=== PATIENT | male | born 1950 | race Caucasian/White ===

== ENCOUNTER → 2016-08-12 | Outpatient (CLI) | payer MEDICARE, BC ==
[~2016-08-12] MED LIST: ASPIR 8181 MG PO; DEMEROL HYDROCH50 MG PO; FISH OIL PO; FLEXERIL10 MG PO; FLOMAX0.4 MG PO; HYDROCODONE BIT1 T11 PO; METOPROLOL PO; MOTRIN800 MG PO; PREDNICOT20 MG PO; ROBAXIN-750750 MG PO; SPIRIVA -- 3018 MCG INH; TOPROL XL25 MG PO; VOLTAREN GEL1% TP; ZOCOR PO; [UNRECOGNIZED DRUG - REMARK] PO
== END | disposition home or self-care (01) ==
LOC: RAD 15:36
DX: J43.9 Emphysema, unspecified (principal); I25.10 Atherosclerotic heart disease of native coronary artery without angina pectoris; F17.200 Nicotine dependence, unspecified, uncomplicated

== ENCOUNTER 2016-11-30 16:56 | Emergency (ER) | payer MEDICARE, BC ==
[~2016-11-30] VITALS: Wt 106.6 kg
[2016-11-30] MEDS ORDERED: JANUMET 50-1,01 EACH PO (17:29)
[2016-11-30] MEDS ORDERED: ZOCOR20 MG PO (17:30)
[2016-11-30] MEDS ORDERED: AUGMENTIN 875875 MG PO (17:31)
[2016-11-30] MEDS ORDERED: METHYLPRED-DP4 MG PO (17:31)
[2016-11-30] MEDS ORDERED: IBU800 M1 PO (17:31)
[2016-11-30 17:51] VITALS: BP 156/92
[2016-11-30 18:01] LABS: BASO % 0.3 % (0.0-1.0); EOS % 0.1 % (1.0-4.0); HEMATOCRIT 40.1 % (42.0-52.0); LYMPH # 2.4 10*3/uL (1.3-4.4); LYMPH % 20.7 % (27.0-41.0); MEAN CELL VOLUME 91.1 fl (80.0-94.0); MEAN CORPUSCULAR HGB 31.8 pg (27.0-31.0); MEAN CORPUSCULAR HGB CONC 34.9 g/dl (33.0-37.0); MEAN PLATELET VOLUME 10.3 fl (9.6-12.3); MONO # 0.7 10*3/uL (0.1-1.0); MONO % 6.4 % (3.0-9.0); NEUT # 8.3 10*3/uL (2.3-7.9); NEUT % 72.2 % (47.0-73.0); PLATELET COUNT AUTOMATED 190 10*3/uL (130-400); RED CELL DISTRI WIDTH 12.7 % (0-14.5); WHITE BLOOD COUNT 11.5 10*3/uL (4.8-10.8)
[2016-11-30 18:18] LABS: ALBUMIN 3.8 gm/dl (3.1-4.5); ALKALINE PHOSPHATASE 46 U/L (45-117); BUN 12 mg/dl (7-24); CHLORIDE 108 mmol/L (98-107); CREATININE 0.81 mg/dL (0.70-1.30); POTASSIUM 4.1 mmol/L (3.5-5.1); SGOT/AST 26 IU/L (3-35); SGPT/ALT 48 U/L (12-78); SODIUM 140 mmol/L (136-145); TOTAL PROTEIN 8.1 gm/dL (6.4-8.2)
== END 2016-11-30 19:48 | disposition home or self-care (01) ==
LOC: ED 16:56
PROVIDERS: Nurse Practitioner Family
DX: M71.21 Synovial cyst of popliteal space [Baker], right knee (principal); Z79.82 Long term (current) use of aspirin; Z88.6 Allergy status to analgesic agent; Z79.899 Other long term (current) drug therapy; F17.200 Nicotine dependence, unspecified, uncomplicated

== ENCOUNTER → 2017-01-06 | Outpatient (CLI) | payer MEDICARE, BC ==
[~2017-01-06] MED LIST changes: +AUGMENTIN 875875 MG PO; +IBU800 M1 PO; +JANUMET 50-1,01 EACH PO; +METHYLPRED-DP4 MG PO; +ZOCOR20 MG PO
== END | disposition home or self-care (01) ==
LOC: CARD 12-28 15:00
DX: I34.0 Nonrheumatic mitral (valve) insufficiency (principal); I20.9 Angina pectoris, unspecified; Z79.899 Other long term (current) drug therapy

== ENCOUNTER → 2017-01-10 | Outpatient (CLI) | payer MEDICARE, BC ==
--- NOTE | ~2017-01-10 | ST ---
[place], [place] EXERCISE STRESS TEST REPORT NAME: IRISH RUDOLPH UNIT #: [id number] ROOM: DOCTOR: IRISH AGUILAR MD BIRTHDATE: [birth year] DOS: 01/10/2017 PHARMACOLOGIC STRESS TEST REASON FOR STRESS TEST: Precordial chest pain, history of coronary artery disease with previous stent. PROCEDURE: The patient received a rapid infusion of regadenoson 0.4 mg intravenously followed by a saline flush. The resting electrocardiogram showed sinus bradycardia. His resting heart rate of 55 increased to 69 after the infusion. He had no diagnostic ST or T-wave changes. He did experience chest tightness and dyspnea with the infusion that resolved spontaneously. Forty seconds after the infusion of regadenoson, he was given radionuclide intravenously. IMPRESSION: 1. Well tolerated infusion of regadenoson. 2. Radionuclide injected. Please see the separately dictated imaging report for further details of the patient's stress test results. IRISH AGUILAR MD CM:STRESS:EXERCISE STRESS TEST REPORT [id number] IRISH AGUILAR MD
--- NOTE | 2017-01-10 10:17 | NUR ---
INFORMED SIGNED CONSENT OBTAINED FOR LEXISCAN STRESS TEST WITH DR AGUILAR. EKG SINUS BRADYCARDIA HR 55 BP 122/55. PULSE OX 96% LUNGS CLEAR. PT COMPLETED ONE MINUTE OF A LEXISCAN PROTOCOL WITH PT RECEIVING LEXISCAN 0.4MG IV OVER 10 SECONDS. PT REACHED A PEAK HR OF 69 BP 140/50. NO ARRHYTHMIAS OR ST CHANGES. LAST RECOVERY HR OF 69 BP 120/68. PT IN STABLE CONDITION, AWAITING NUCLEAR IMAGES.
== END | disposition home or self-care (01) ==
LOC: CARD 01:24
DX: I20.9 Angina pectoris, unspecified (principal); R53.81 Other malaise; Z79.899 Other long term (current) drug therapy

== ENCOUNTER → 2017-04-12 | Outpatient (CLI) | payer OTHER, MEDICARE | END | disposition home or self-care (01) | LOC: US 13:30 | DX: R10.11 Right upper quadrant pain (principal) ==

== ENCOUNTER → 2017-06-01 | Outpatient (CLI) | payer MEDICARE | END | disposition home or self-care (01) | LOC: MRI 02:27 | DX: M54.2 Cervicalgia (principal); Z98.890 Other specified postprocedural states ==

== ENCOUNTER → 2017-08-05 | Outpatient (CLI) | payer OTHER, MEDICARE | END | disposition home or self-care (01) | LOC: MRI 13:00 | DX: I67.82 Cerebral ischemia (principal) ==

== ENCOUNTER → 2017-09-09 | Outpatient (CLI) | payer MEDICARE | END | disposition home or self-care (01) | LOC: CT 13:00 | DX: I25.10 Atherosclerotic heart disease of native coronary artery without angina pectoris (principal); I10 Essential (primary) hypertension; E11.9 Type 2 diabetes mellitus without complications; R91.1 Solitary pulmonary nodule; R06.02 Shortness of breath ==

== ENCOUNTER 2018-02-16 15:36 | Emergency (ER) | payer MEDICARE ==
[~2018-02-16] VITALS: Ht 177.8 cm; Wt 108.9 kg
--- NOTE | ~2018-02-16 | EKG ---
[place], [place] ELECTROCARDIOGRAM REPORT NAME: JOZEF RUDOLPH UNIT #: [id number] ROOM: DOCTOR: EPIPHANY DRAFT REPORT BIRTHDATE: [birth year] [facility] Test Date: 2018-02-16 Test Time: 16:06:58 Pat Name: JOZEF RUDOLPH Department: ER Room: Gender: Help Desk Assistant: So Malloy : 1950 Requested By: KRISTOPHER SORIA DNP Order Number: [id number] Reading MD: Jozef Tim MD Measurements Intervals [place] Rate: 62 P: 42 MT: 186 QRS: 8 QRSD: 93 T: 55 QT: 423 QTc: 430 Interpretive Statements Sinus rhythm Electronically Signed On 02-16-2018 16:39:21 PST by Jozef Tim MD CM:EKGRPT:ELECTROCARDIOGRAM REPORT [id number] KRISTOPHER SORIA DNP [facility] KRISTOPHER SORIA DNP
[2018-02-16] MEDS ORDERED: HALOPERIDOL1 MG PO ×2 (15:50→15:51)
[2018-02-16] MEDS ORDERED: THIAMINE HCL100 MG PO (15:52)
[2018-02-16] MEDS ORDERED: DONEPEZIL HCL10 MG PO (15:53)
[2018-02-16] MEDS ORDERED: NATURE'S BLEND F1 MG PO (15:54)
[2018-02-16] MEDS ORDERED: TRAZODONE100 MG PO (15:54)
[2018-02-16] MEDS ORDERED: ZOLOFT100 MG PO (15:54)
[2018-02-16] MEDS ORDERED: VITAMIN D32000 UNI1 PO (15:56)
[2018-02-16] MEDS ORDERED: MEN'S ONE DAIL1 EACH PO (15:56)
[2018-02-16 16:09] LABS: BASO % 0.3 % (0.0-1.0); EOS # 0.3 10*3/uL (0.0-0.4); EOS % 3.6 % (1.0-4.0); HEMATOCRIT 41.4 % (42.0-52.0); LYMPH # 3.7 10*3/uL (1.3-4.4); LYMPH % 41.6 % (27.0-41.0); MEAN CELL VOLUME 91.8 fl (80.0-94.0); MEAN CORPUSCULAR HGB CONC 33.8 g/dl (33.0-37.0); MONO # 0.8 10*3/uL (0.1-1.0); MONO % 9.4 % (3.0-9.0); NEUT # 3.9 10*3/uL (2.3-7.9); NEUT % 44.6 % (47.0-73.0); PLATELET COUNT AUTOMATED 188 10*3/uL (130-400); RED BLOOD COUNT 4.51 10*6/uL (4.50-5.90); RED CELL DISTRI WIDTH 12.6 % (0-14.5); WHITE BLOOD COUNT 8.8 10*3/uL (4.8-10.8)
[2018-02-16 16:18] LABS: INTERNATIONAL NORM RATIO 0.9 (2.0-3.5)
[2018-02-16 16:23] LABS: BILIRUBIN NEGATIVE (NEGATIVE); BLOOD NEGATIVE (NEGATIVE); CLARITY CLEAR (CLEAR); COLOR YELLOW (YELLOW); GLUCOSE NEGATIVE (NEGATIVE); KETONE NEGATIVE (NEGATIVE); LEUKO ESTERASE NEGATIVE (NEGATIVE); NITRITE NEGATIVE (NEGATIVE); UROBILINOGEN 0.2 E.U./dl (0.2-1.0)
[2018-02-16 16:24] LABS: ALBUMIN 3.9 gm/dl (3.1-4.5); ALKALINE PHOSPHATASE 55 U/L (45-117); BUN 11 mg/dl (7-24); CHLORIDE 105 mmol/L (98-107); CREATININE 0.77 mg/dL (0.70-1.30); LIPASE 290 U/L (73-393); POTASSIUM 3.7 mmol/L (3.5-5.1); SGOT/AST 20 IU/L (3-35); SGPT/ALT 46 U/L (12-78); SODIUM 140 mmol/L (136-145); TOTAL PROTEIN 7.6 gm/dL (6.4-8.2)
[2018-02-16 16:25] LABS: ETHYL ALCOHOL < 3.0 mg/dl (<3); TROPONIN I < 0.015 ng/ml (<0.045)
[2018-02-16 16:30] LABS: BACTERIA 2+
[2018-02-16 18:08] VITALS: BP 128/69
[2018-02-16] MEDS ORDERED: PRILOSEC20 M1 PO (18:54)
[2018-02-16] MEDS ORDERED: Zofran4 MG SL (18:54)
[2018-02-16] MEDS ORDERED: Carafate1 GM/10 ML PO (18:54)
== END 2018-02-16 19:25 | disposition home or self-care (01) ==
LOC: ED 15:36
PROVIDERS: Nurse Practitioner Family
DX: K29.70 Gastritis, unspecified, without bleeding (principal); I10 Essential (primary) hypertension; E78.5 Hyperlipidemia, unspecified; J44.9 Chronic obstructive pulmonary disease, unspecified; K21.9 Gastro-esophageal reflux disease without esophagitis; F17.200 Nicotine dependence, unspecified, uncomplicated; Z88.6 Allergy status to analgesic agent; Z79.899 Other long term (current) drug therapy

== ENCOUNTER → 2018-04-14 | Day surgery (SDC) | payer MEDICARE ==
[~2018-04-14] VITALS: Ht 177.8 cm; Wt 109.3 kg
[~2018-04-14] MED LIST changes: +AMARYL4 MG PO; +BAYER ASPIRIN C81 MG PO; +Carafate1 GM/10 ML PO; +DONEPEZIL HCL10 MG PO; +GLIPIZIDE5 MG PO; +HALOPERIDOL1 MG PO; +LIPITOR40 MG PO; +Lopressor25 MG PO; +MEN'S ONE DAIL1 EACH PO; +METOPROLOL SUCC25 M2 PO; +NATURE'S BLEND F1 MG PO; +PRILOSEC20 M1 PO; +THIAMINE HCL100 MG PO; +TRAZODONE100 MG PO; +VITAMIN D32000 UNI1 PO; +ZOLOFT100 MG PO; +Zofran4 MG SL
--- NOTE | ~2018-04-14 | O ---
[place], [place] OPERATIVE NOTE NAME: IRISH RUDOLPH UNIT #: [id number] ROOM: DOCTOR: EVERTON DIEGO MD BIRTHDATE: [birth year] DOS: 04/14/2018 GASTROENDOSCOPIC REPORT HISTORY OF PRESENT ILLNESS: The patient has presented with a chief complaint of dyspepsia and diarrhea, undergone evaluation. ALLERGIES: CODEINE. FAMILY HISTORY: Noncontributory. PAST SURGICAL HISTORY: Neck, thumbs, cardiac stent x 1, and dental. PAST MEDICAL HISTORY: Diabetes, hypertension, hyperlipidemia, coronary artery disease, and obesity. SOCIAL HISTORY: Smoker of three packs a day. Social alcohol consumer. PROCEDURE: Today's procedure part of investigation is panendoscopy and colonoscopy. PREMEDICATION: Propofol. SCOPE: Olympus forward-viewing gastroscope Q10 video. REPORT: After putting the patient in left lateral position and application of lubricant to the scope, the scope was introduced. Thereafter, under direct visualization, advanced through the length of esophagus without difficulty. Hiatal hernia was noticed about 3 cm. Gastric pouch was entered. Gastritis seen. Antral biopsy obtained. Duodenal bulbs consistent with duodenitis. Air was suctioned out. The patient was extubated, tolerated the procedure well. IMPRESSION: Gastritis, status post biopsy, duodenitis, hiatal hernia. PLAN AND DISCUSSION: The patient is already on Prilosec 20 mg daily, Carafate 2 grams 3 times a day and he is experiencing diarrhea because of omeprazole. The list of his medication has been reviewed, devoid of metformin. Due to the diarrhea experience with Prilosec, I am going to change him to famotidine 40 mg daily and ____ his Carafate down. INDICATIONS: The patient has presented with diarrhea complaint undergo investigation. PROCEDURE: Today's procedure part of investigation is colonoscopy. PREMEDICATION: Propofol. SCOPE: Olympus forward-viewing colonoscope 10L video. REPORT: After putting the patient in left lateral position and application of [place], [place] OPERATIVE NOTE NAME: IRISH RUDOLPH UNIT #: [id number] ROOM: DOCTOR: EVERTON DIEGO MD BIRTHDATE: [birth year] lubricant to the scope, the scope was introduced. Thereafter, under direct visualization, I advanced through the length of colon without difficulty. Tortuous redundant colon throughout the length of the entire colon was experienced, severe diverticulosis in the left transverse ascending colon was appreciated. However, base of the cecum explored, appendiceal orifice and ileocecal valve was photographed. Air was suctioned out. The patient was extubated, tolerated the procedure well. IMPRESSION: Severe diverticulosis. PLAN AND DISCUSSION: We are going to remove his Prilosec and switched to famotidine and withdrawing the Carafate. He has to induce dietary modification. He has to stop smoking 3 packs of cigarettes a day. I am sure that he is not judgmental about his dietary habits and we are going to have a discussion with the family and the patient in each other's presence. On the other hand, he is going to have followup in office for further management, Lannytil at the present time p.r.n. EVERTON DIEGO MD CM:OPRECORD:OPERATIVE NOTE 1321 [id number] EVERTON DIEGO MD 04/14/18 1416 interface
[2018-04-14 11:35] VITALS: BP 145/79
[2018-04-14 13:01] VITALS: BP 123/64
[2018-04-14 13:16] VITALS: BP 130/68
[2018-04-14 13:31] VITALS: BP 135/75
== END | disposition home or self-care (01) ==
LOC: SDC 04-10 12:30
DX: K29.50 Unspecified chronic gastritis without bleeding (principal); K29.90 Gastroduodenitis, unspecified, without bleeding; K57.90 Diverticulosis of intestine, part unspecified, without perforation or abscess without bleeding; E11.9 Type 2 diabetes mellitus without complications; I10 Essential (primary) hypertension; E78.5 Hyperlipidemia, unspecified; I25.10 Atherosclerotic heart disease of native coronary artery without angina pectoris; F17.210 Nicotine dependence, cigarettes, uncomplicated; J44.9 Chronic obstructive pulmonary disease, unspecified; F32.9 Major depressive disorder, single episode, unspecified; G47.30 Sleep apnea, unspecified; Z95.5 Presence of coronary angioplasty implant and graft; Z88.8 Allergy status to other drugs, medicaments and biological substances; Z88.5 Allergy status to narcotic agent; Z79.82 Long term (current) use of aspirin; Z79.899 Other long term (current) drug therapy; Z79.84 Long term (current) use of oral hypoglycemic drugs; Z98.890 Other specified postprocedural states; Z83.3 Family history of diabetes mellitus; Z82.49 Family history of ischemic heart disease and other diseases of the circulatory system

== ENCOUNTER 2018-06-12 16:28 | Emergency (ER) | payer OTHER ==
[~2018-06-12] VITALS: Ht 177.8 cm; Wt 108.9 kg
[2018-06-12] MEDS ORDERED: DONEPEZIL HCL10 MG PO (16:46)
[2018-06-12 17:07] LABS: BASO # 0.1 10*3/uL (0.0-0.1); BASO % 0.6 % (0.0-1.0); EOS # 0.4 10*3/uL (0.0-0.4); EOS % 4.8 % (1.0-4.0); HEMATOCRIT 40.3 % (42.0-52.0); HEMOGLOBIN 13.3 g/dl (14.0-18.0); LYMPH # 3.9 10*3/uL (1.3-4.4); LYMPH % 45.3 % (27.0-41.0); MEAN CELL VOLUME 92.6 fl (80.0-94.0); MEAN CORPUSCULAR HGB 30.6 pg (27.0-31.0); MEAN PLATELET VOLUME 10.2 fl (9.6-12.3); MONO # 0.7 10*3/uL (0.1-1.0); MONO % 8.3 % (3.0-9.0); NEUT # 3.5 10*3/uL (2.3-7.9); NEUT % 40.5 % (47.0-73.0); PLATELET COUNT AUTOMATED 188 10*3/uL (130-400); RED BLOOD COUNT 4.35 10*6/uL (4.50-5.90); RED CELL DISTRI WIDTH 12.6 % (0-14.5); WHITE BLOOD COUNT 8.6 10*3/uL (4.8-10.8)
[2018-06-12 17:15] LABS: ACT PARTIAL THROMBO TIME 22.1 SECONDS (20.8-31.5); INTERNATIONAL NORM RATIO 0.9 (2.0-3.5)
[2018-06-12 17:25] LABS: ALBUMIN 3.3 gm/dl (3.1-4.5); ALKALINE PHOSPHATASE 80 U/L (45-117); BUN 11 mg/dl (7-24); CHLORIDE 108 mmol/L (98-107); CREATININE 0.88 mg/dL (0.70-1.30); SGOT/AST 13 IU/L (3-35); SGPT/ALT 36 U/L (12-78); SODIUM 141 mmol/L (136-145); TOTAL PROTEIN 7.5 gm/dL (6.4-8.2)
[2018-06-12 21:02] VITALS: BP 122/76
[2018-10-08] MEDS ORDERED: NAPROSYN500 MG PO (13:21)
[2018-10-08] MEDS ORDERED: CHLORZOXAZONE500 M2 PO (13:21)
== END 2018-06-12 22:20 | disposition home or self-care (01) ==
LOC: ED 16:28
PROVIDERS: Nurse Practitioner Family
DX: S16.1XXA Strain of muscle, fascia and tendon at neck level, initial encounter (principal); I10 Essential (primary) hypertension; I25.10 Atherosclerotic heart disease of native coronary artery without angina pectoris; E78.5 Hyperlipidemia, unspecified; E11.9 Type 2 diabetes mellitus without complications; R79.1 Abnormal coagulation profile; F17.200 Nicotine dependence, unspecified, uncomplicated; Z88.6 Allergy status to analgesic agent; Z79.899 Other long term (current) drug therapy; Z79.82 Long term (current) use of aspirin; W18.39XA Other fall on same level, initial encounter; Y93.84 Activity, sleeping; Y92.89 Other specified places as the place of occurrence of the external cause; Y99.8 Other external cause status

== ENCOUNTER → 2018-07-19 | Outpatient (CLI) | payer MEDICARE ==
[~2018-07-19] MED LIST changes: +CHLORZOXAZONE500 M2 PO; +NAPROSYN500 MG PO
[2018-07-19 12:41] LABS: BILIRUBIN NEGATIVE (NEGATIVE); BLOOD 3+ (NEGATIVE); CLARITY SL CLOUDY (CLEAR); COLOR YELLOW (YELLOW); GLUCOSE NEGATIVE (NEGATIVE); KETONE NEGATIVE (NEGATIVE); LEUKO ESTERASE NEGATIVE (NEGATIVE); NITRITE NEGATIVE (NEGATIVE); SPECIFIC GRAVITY 1.015 (1.005-1.030); UROBILINOGEN 0.2 E.U./dl (0.2-1.0)
[2018-07-19 12:55] LABS: RBC TNTC rbc/hpf (0-2)
[2018-07-19 12:56] LABS: BASO # 0.1 10*3/uL (0.0-0.1); BASO % 0.5 % (0.0-1.0); EOS # 0.5 10*3/uL (0.0-0.4); EOS % 4.3 % (1.0-4.0); HEMATOCRIT 39.7 % (42.0-52.0); HEMOGLOBIN 12.9 g/dl (14.0-18.0); LYMPH # 3.5 10*3/uL (1.3-4.4); LYMPH % 32.9 % (27.0-41.0); MEAN CELL VOLUME 92.1 fl (80.0-94.0); MEAN CORPUSCULAR HGB 29.9 pg (27.0-31.0); MEAN CORPUSCULAR HGB CONC 32.5 g/dl (33.0-37.0); MEAN PLATELET VOLUME 10.5 fl (9.6-12.3); MONO # 0.8 10*3/uL (0.1-1.0); NEUT # 5.6 10*3/uL (2.3-7.9); NEUT % 53.3 % (47.0-73.0); PLATELET COUNT AUTOMATED 241 10*3/uL (130-400); RED BLOOD COUNT 4.31 10*6/uL (4.50-5.90); RED CELL DISTRI WIDTH 12.6 % (0-14.5); WHITE BLOOD COUNT 10.5 10*3/uL (4.8-10.8)
[2018-07-19 13:17] LABS: ALBUMIN 3.7 gm/dl (3.1-4.5); ALKALINE PHOSPHATASE 79 U/L (45-117); BUN 9 mg/dl (7-24); CHLORIDE 101 mmol/L (98-107); SGOT/AST 15 IU/L (3-35); SGPT/ALT 44 U/L (12-78); SODIUM 140 mmol/L (136-145); TOTAL PROTEIN 7.4 gm/dL (6.4-8.2)
== END | disposition home or self-care (01) ==
LOC: LAB 11:57
PROVIDERS: Urology
DX: Z12.5 Encounter for screening for malignant neoplasm of prostate (principal); R31.9 Hematuria, unspecified

== ENCOUNTER → 2018-07-27 | Outpatient (CLI) | payer MEDICARE | END | disposition home or self-care (01) | LOC: CT 09:54 | DX: K76.0 Fatty (change of) liver, not elsewhere classified (principal); R31.9 Hematuria, unspecified; K57.90 Diverticulosis of intestine, part unspecified, without perforation or abscess without bleeding; I25.10 Atherosclerotic heart disease of native coronary artery without angina pectoris; N28.1 Cyst of kidney, acquired ==

== ENCOUNTER → 2019-01-30 | Outpatient (CLI) | payer MEDICARE ==
[2019-01-30 12:18] LABS: BUN 12 mg/dl (7-24); CHLORIDE 109 mmol/L (98-107); CREATININE 0.88 mg/dL (0.70-1.30); SODIUM 141 mmol/L (136-145)
[2019-01-30 14:13] LABS: BASO % 0.5 % (0.0-1.0); EOS # 0.3 10*3/uL (0.0-0.4); EOS % 3.7 % (1.0-4.0); HEMATOCRIT 40.1 % (42.0-52.0); HEMOGLOBIN 13.1 g/dl (14.0-18.0); LYMPH # 3.4 10*3/uL (1.3-4.4); LYMPH % 40.3 % (27.0-41.0); MEAN CELL VOLUME 92.8 fl (80.0-94.0); MEAN CORPUSCULAR HGB 30.3 pg (27.0-31.0); MEAN CORPUSCULAR HGB CONC 32.7 g/dl (33.0-37.0); MEAN PLATELET VOLUME 10.6 fl (9.6-12.3); MONO # 0.5 10*3/uL (0.1-1.0); MONO % 6.4 % (3.0-9.0); NEUT # 4.1 10*3/uL (2.3-7.9); NEUT % 48.6 % (47.0-73.0); PLATELET COUNT AUTOMATED 203 10*3/uL (130-400); RED BLOOD COUNT 4.32 10*6/uL (4.50-5.90); RED CELL DISTRI WIDTH 12.7 % (0-14.5); WHITE BLOOD COUNT 8.4 10*3/uL (4.8-10.8)
== END | disposition home or self-care (01) ==
LOC: LAB 11:23
PROVIDERS: Internal Medicine Cardiovascular Disease
DX: J43.9 Emphysema, unspecified (principal); R07.9 Chest pain, unspecified; I25.10 Atherosclerotic heart disease of native coronary artery without angina pectoris

== ENCOUNTER 2019-05-18 13:56 | Emergency (ER) | payer MEDICARE ==
[~2019-05-18] VITALS: Ht 177.8 cm
[2019-05-18 14:05] VITALS: BP 145/75
== END 2019-05-18 16:36 | disposition home or self-care (01) ==
LOC: ED 13:56
DX: S01.01XA Laceration without foreign body of scalp, initial encounter (principal); J44.9 Chronic obstructive pulmonary disease, unspecified; K21.9 Gastro-esophageal reflux disease without esophagitis; E11.9 Type 2 diabetes mellitus without complications; G89.29 Other chronic pain; F17.200 Nicotine dependence, unspecified, uncomplicated; Z88.5 Allergy status to narcotic agent; Z79.899 Other long term (current) drug therapy; W22.8XXA Striking against or struck by other objects, initial encounter; Y93.89 Activity, other specified; Y92.89 Other specified places as the place of occurrence of the external cause; Y99.8 Other external cause status

== ENCOUNTER → 2019-08-15 | Outpatient (CLI) | payer MEDICARE | END | disposition home or self-care (01) | LOC: US 14:00 | DX: R30.0 Dysuria (principal); R10.9 Unspecified abdominal pain ==

== ENCOUNTER → 2019-09-26 | Outpatient (CLI) | payer MEDICARE ==
[2019-09-26 14:42] LABS: BASO % 0.4 % (0.0-1.0); EOS # 0.4 10*3/uL (0.0-0.4); EOS % 5.4 % (1.0-4.0); HEMATOCRIT 44.4 % (42.0-52.0); LYMPH # 2.9 10*3/uL (1.3-4.4); LYMPH % 35.2 % (27.0-41.0); MEAN CELL VOLUME 89.7 fl (80.0-94.0); MEAN CORPUSCULAR HGB 29.3 pg (27.0-31.0); MEAN CORPUSCULAR HGB CONC 32.7 g/dl (33.0-37.0); MEAN PLATELET VOLUME 10.4 fl (9.6-12.3); MONO # 0.6 10*3/uL (0.1-1.0); MONO % 7.9 % (3.0-9.0); NEUT # 4.2 10*3/uL (2.3-7.9); NEUT % 50.9 % (47.0-73.0); PLATELET COUNT AUTOMATED 214 10*3/uL (130-400); RED BLOOD COUNT 4.95 10*6/uL (4.50-5.90); RED CELL DISTRI WIDTH 13.8 % (0-14.5); WHITE BLOOD COUNT 8.2 10*3/uL (4.8-10.8)
[2019-09-26 15:11] LABS: ALBUMIN 3.5 gm/dl (3.1-4.5); ALKALINE PHOSPHATASE 81 U/L (45-117); BUN 12 mg/dl (7-24); CHLORIDE 108 mmol/L (98-107); CREATININE 1.04 mg/dL (0.70-1.30); POTASSIUM 3.8 mmol/L (3.5-5.1); SGOT/AST 32 IU/L (3-35); SGPT/ALT 62 U/L (12-78); SODIUM 141 mmol/L (136-145); T3 UPTAKE 38 % (31-39); THYROXINE (T4) TOTAL 6.9 ug/dl (4.5-12.1); TOTAL PROTEIN 7.7 gm/dL (6.4-8.2)
[2019-09-27 08:11] LABS: FOLLICLE STIMULATING HORMONE 2.5 mIU/mL (1.5-12.4); LUTEINIZING HORMONE 4.4 mIU/mL (1.7-8.6); PROGESTERONE 0.1 ng/mL (0.0-0.5); PROLACTIN 8.4 ng/mL (4.0-15.2)
== END | disposition home or self-care (01) ==
LOC: CT 09-18 14:00
PROVIDERS: Urology
DX: Z12.5 Encounter for screening for malignant neoplasm of prostate (principal); R10.9 Unspecified abdominal pain; R53.82 Chronic fatigue, unspecified

== ENCOUNTER → 2019-10-12 | Outpatient (CLI) | payer MEDICARE | END | disposition home or self-care (01) | LOC: LAB 11:58 | DX: R53.83 Other fatigue (principal) ==

== ENCOUNTER 2019-11-19 14:48 | Emergency (ER) | payer MEDICARE ==
[~2019-11-19] VITALS: Ht 177.8 cm; Wt 110.2 kg
[2019-11-19 15:17] VITALS: BP 150/67
[2019-11-19] MEDS ORDERED: TRAMADOL HCL50 MG PO (17:46)
== END 2019-11-19 18:09 | disposition home or self-care (01) ==
LOC: ED 14:48
DX: S89.91XA Unspecified injury of right lower leg, initial encounter (principal); F17.200 Nicotine dependence, unspecified, uncomplicated; Z88.6 Allergy status to analgesic agent; Z79.899 Other long term (current) drug therapy; Z79.82 Long term (current) use of aspirin; W01.0XXA Fall on same level from slipping, tripping and stumbling without subsequent striking against object, initial encounter; Y93.89 Activity, other specified; Y92.89 Other specified places as the place of occurrence of the external cause; Y99.8 Other external cause status

== ENCOUNTER → 2019-11-26 | Outpatient (CLI) | payer MEDICARE ==
[~2019-11-26] MED LIST changes: +CRANBERRY PLUS1 EAC1 PO; +FEXOFENADINE H180 M1 PO; +JARDIANCE10 MG PO; +METHOCARBAMOL750 M1 PO; +MINIPRESS5 MG PO; +PANTOPRAZOLE SO40 MG PO; +SERTRALINE HYD100 MG PO; +TRAMADOL HCL50 MG PO
--- NOTE | 2019-11-26 10:00 | NUR ---
INFORMED CONSENT SIGNED FOR LEXISCAN STRESS TEST WITH DR. DOMINGUEZ. RESTING EKG NSR, HR 66, BP 124/58. PULSE OX 98% AND LUNGS CLEAR BILATERALLY. COMPLETED ONE MINUTE OF LEXISCAN PROTOCOL RECEIVING LEXISCAN 0.4MG OVER 10 SECONDS. NO ARRHYTHMIAS OR ST CHANGES NOTED. PT C/O SOB AND CHEST HEAVINESS. LAST RECOVERY HR 73, BP 128/64. WAITING NUCLEAR SCANNING IN STABLE CONDITION.
== END | disposition home or self-care (01) ==
LOC: CARD 00:02
DX: I25.10 Atherosclerotic heart disease of native coronary artery without angina pectoris (principal); E78.5 Hyperlipidemia, unspecified; R07.9 Chest pain, unspecified; R06.02 Shortness of breath

== ENCOUNTER 2019-11-30 05:27 | Emergency (ER) | payer MEDICARE ==
[~2019-11-30] VITALS: Ht 172.7 cm; Wt 127.0 kg
[2019-11-30 06:52] LABS: BASO % 0.5 % (0.0-1.0); EOS # 0.4 10*3/uL (0.0-0.4); EOS % 4.3 % (1.0-4.0); HEMATOCRIT 43.3 % (42.0-52.0); LYMPH # 3.9 10*3/uL (1.3-4.4); MEAN CELL VOLUME 90.4 fl (80.0-94.0); MEAN CORPUSCULAR HGB 29.6 pg (27.0-31.0); MEAN CORPUSCULAR HGB CONC 32.8 g/dl (33.0-37.0); MEAN PLATELET VOLUME 10.3 fl (9.6-12.3); MONO # 0.7 10*3/uL (0.1-1.0); MONO % 8.3 % (3.0-9.0); NEUT # 3.4 10*3/uL (2.3-7.9); NEUT % 40.3 % (47.0-73.0); PLATELET COUNT AUTOMATED 201 10*3/uL (130-400); RED BLOOD COUNT 4.79 10*6/uL (4.50-5.90); RED CELL DISTRI WIDTH 13.7 % (0-14.5); WHITE BLOOD COUNT 8.5 10*3/uL (4.8-10.8)
[2019-11-30 07:05] LABS: ALBUMIN 3.6 gm/dl (3.1-4.5); ALKALINE PHOSPHATASE 56 U/L (45-117); BUN 8 mg/dl (7-24); CHLORIDE 103 mmol/L (98-107); CREATININE 0.73 mg/dL (0.70-1.30); POTASSIUM 3.5 mmol/L (3.5-5.1); SGOT/AST 39 IU/L (3-35); SGPT/ALT 64 U/L (12-78); SODIUM 136 mmol/L (136-145); TOTAL PROTEIN 7.6 gm/dL (6.4-8.2)
[2019-11-30 07:31] VITALS: BP 130/69
[2019-11-30 07:50] LABS: URINE AMPHETAMINES < 1000 (1000ng/ml); URINE BARBITURATES < 200 (200ng/ml); URINE BENZODIAZEPINES < 200 (200ng/ml); URINE CANNABINOIDS (THC) < 50 (50ng/ml); URINE COCAINE < 300 (300ng/ml); URINE METHADONE < 300 (300ng/ml); URINE OPIATES < 300 (300ng/ml)
[2019-11-30 07:54] LABS: URINE PHENCYCLIDINE < 25 (25ng/ml)
== END 2019-11-30 08:35 | disposition home or self-care (01) ==
LOC: ED 05:27
PROVIDERS: Emergency Medicine
DX: S00.83XA Contusion of other part of head, initial encounter (principal); W18.39XA Other fall on same level, initial encounter; Y93.89 Activity, other specified; Y92.89 Other specified places as the place of occurrence of the external cause; Y99.8 Other external cause status

== ENCOUNTER → 2020-01-08 | Outpatient (CLI) | payer MEDICARE ==
[2020-01-08 14:15] LABS: BASO # 0.1 10*3/uL (0.0-0.1); BASO % 0.6 % (0.0-1.0); EOS # 0.4 10*3/uL (0.0-0.4); LYMPH # 3.4 10*3/uL (1.3-4.4); LYMPH % 38.5 % (27.0-41.0); MEAN CELL VOLUME 89.4 fl (80.0-94.0); MEAN CORPUSCULAR HGB 28.6 pg (27.0-31.0); MEAN PLATELET VOLUME 10.2 fl (9.6-12.3); MONO # 0.9 10*3/uL (0.1-1.0); NEUT # 4.1 10*3/uL (2.3-7.9); NEUT % 46.5 % (47.0-73.0); PLATELET COUNT AUTOMATED 240 10*3/uL (130-400); RED BLOOD COUNT 5.48 10*6/uL (4.50-5.90); RED CELL DISTRI WIDTH 12.9 % (0-14.5); WHITE BLOOD COUNT 8.9 10*3/uL (4.8-10.8)
[2020-01-08 14:45] LABS: ALBUMIN 3.7 gm/dl (3.1-4.5); ALKALINE PHOSPHATASE 68 U/L (45-117); BUN 7 mg/dl (7-24); CHLORIDE 106 mmol/L (98-107); CREATININE 0.94 mg/dL (0.70-1.30); POTASSIUM 3.7 mmol/L (3.5-5.1); SGOT/AST 21 IU/L (3-35); SGPT/ALT 58 U/L (12-78); SODIUM 137 mmol/L (136-145)
== END | disposition home or self-care (01) ==
LOC: LAB 13:46
PROVIDERS: Urology; ATTEND Physician Assistant
DX: Z12.5 Encounter for screening for malignant neoplasm of prostate (principal); R53.83 Other fatigue; D40.0 Neoplasm of uncertain behavior of prostate; R10.11 Right upper quadrant pain

== ENCOUNTER → 2020-01-24 | Outpatient (CLI) | payer MEDICARE | END | disposition home or self-care (01) | LOC: US 10:23 | PROVIDERS: ATTEND Physician Assistant | DX: R10.9 Unspecified abdominal pain (principal); R10.11 Right upper quadrant pain ==

== ENCOUNTER → 2020-02-18 | Outpatient (CLI) | payer MEDICARE ==
[2020-02-18 15:57] LABS: BASO # 0.1 10*3/uL (0.0-0.1); BASO % 0.6 % (0.0-1.0); EOS # 0.5 10*3/uL (0.0-0.4); EOS % 5.6 % (1.0-4.0); HEMATOCRIT 49.9 % (42.0-52.0); LYMPH % 32.9 % (27.0-41.0); MEAN CELL VOLUME 88.5 fl (80.0-94.0); MEAN CORPUSCULAR HGB 28.2 pg (27.0-31.0); MEAN CORPUSCULAR HGB CONC 31.9 g/dl (33.0-37.0); MEAN PLATELET VOLUME 10.9 fl (9.6-12.3); MONO # 0.7 10*3/uL (0.1-1.0); MONO % 7.3 % (3.0-9.0); NEUT # 4.8 10*3/uL (2.3-7.9); PLATELET COUNT AUTOMATED 241 10*3/uL (130-400); RED BLOOD COUNT 5.64 10*6/uL (4.50-5.90); RED CELL DISTRI WIDTH 13.3 % (0-14.5)
[2020-02-18 16:16] LABS: ALBUMIN 3.7 gm/dl (3.1-4.5); BUN 13 mg/dl (7-24); CHLORIDE 104 mmol/L (98-107); POTASSIUM 4.2 mmol/L (3.5-5.1); SGOT/AST 29 IU/L (3-35); SGPT/ALT 43 U/L (12-78); SODIUM 137 mmol/L (136-145)
[2020-02-18 16:17] LABS: ALKALINE PHOSPHATASE 60 U/L (45-117); CREATININE 0.95 mg/dL (0.70-1.30); TOTAL PROTEIN 8.2 gm/dL (6.4-8.2)
== END | disposition home or self-care (01) ==
LOC: LAB 14:10
PROVIDERS: ATTEND Urology
DX: I10 Essential (primary) hypertension (principal); R53.83 Other fatigue; D40.0 Neoplasm of uncertain behavior of prostate; Z12.5 Encounter for screening for malignant neoplasm of prostate

== ENCOUNTER → 2020-02-27 | Outpatient (CLI) | payer MEDICARE | END | disposition home or self-care (01) | LOC: COVID19 12:08 | PROVIDERS: ATTEND Physician Assistant | DX: R69 Illness, unspecified (principal); Z20.828 Contact with and (suspected) exposure to other viral communicable diseases ==

== ENCOUNTER 2020-06-10 16:24 | Emergency (ER) | payer MEDICARE ==
[~2020-06-10] VITALS: Ht 177.8 cm; Wt 108.9 kg
[2020-06-10 16:42] VITALS: BP 146/81
[2020-06-10 19:04] LABS: BASO # 0.1 10*3/uL (0.0-0.1); BASO % 0.8 % (0.0-1.0); EOS # 0.3 10*3/uL (0.0-0.4); HEMATOCRIT 44.9 % (42.0-52.0); LYMPH # 2.9 10*3/uL (1.3-4.4); LYMPH % 40.7 % (27.0-41.0); MEAN CELL VOLUME 91.8 fl (80.0-94.0); MEAN CORPUSCULAR HGB CONC 31.6 g/dl (33.0-37.0); MEAN PLATELET VOLUME 10.3 fl (9.6-12.3); MONO # 0.6 10*3/uL (0.1-1.0); MONO % 8.6 % (3.0-9.0); NEUT # 3.3 10*3/uL (2.3-7.9); NEUT % 45.5 % (47.0-73.0); PLATELET COUNT AUTOMATED 212 10*3/uL (130-400); RED BLOOD COUNT 4.89 10*6/uL (4.50-5.90); RED CELL DISTRI WIDTH 16.2 % (0-14.5); WHITE BLOOD COUNT 7.2 10*3/uL (4.8-10.8)
[2020-06-10 19:15] LABS: ACT PARTIAL THROMBO TIME 23.9 SECONDS (20.0-32.1)
[2020-06-10 19:21] LABS: ALBUMIN 3.3 gm/dl (3.1-4.5); ALKALINE PHOSPHATASE 60 U/L (45-117); BUN 9 mg/dl (7-24); CHLORIDE 106 mmol/L (98-107); CREATININE 0.78 mg/dL (0.70-1.30); LIPASE 184 U/L (73-393); SGOT/AST 22 IU/L (3-35); SGPT/ALT 35 U/L (12-78); SODIUM 138 mmol/L (136-145); TOTAL PROTEIN 7.3 gm/dL (6.4-8.2)
[2020-06-10 19:22] LABS: TROPONIN I < 0.015 ng/ml (<0.045)
[2020-06-10 19:56] LABS: BILIRUBIN Negative (Negative); BLOOD Negative (Negative); CLARITY Clear (Clear); COLOR Yellow (Yellow); GLUCOSE 3+ (Negative); KETONE Trace (Negative); LEUKO ESTERASE Negative (Negative); NITRITE Negative (Negative); SPECIFIC GRAVITY >= 1.030 (1.001-1.030)
[2020-06-10 20:07] LABS: BACTERIA 2+; EPITHELIAL CELLS 0-2; RBC 0-2 rbc/hpf (0-2)
[2020-06-10] MEDS ORDERED: CIPRO500 MG PO (20:24)
== END 2020-06-10 20:34 | disposition home or self-care (01) ==
LOC: ED 16:24
PROVIDERS: Emergency Medicine
DX: R82.998 Other abnormal findings in urine (principal); R10.9 Unspecified abdominal pain; J44.9 Chronic obstructive pulmonary disease, unspecified; K21.9 Gastro-esophageal reflux disease without esophagitis; F32.9 Major depressive disorder, single episode, unspecified; E11.9 Type 2 diabetes mellitus without complications; Z88.5 Allergy status to narcotic agent; Z79.899 Other long term (current) drug therapy; Z79.82 Long term (current) use of aspirin; Z91.018 Allergy to other foods; Z98.890 Other specified postprocedural states; Z95.818 Presence of other cardiac implants and grafts

== ENCOUNTER 2021-06-03 15:14 | Emergency (ER) | payer MEDICARE ==
[~2021-06-03] VITALS: Ht 177.8 cm; Wt 108.9 kg
[~2021-06-03 15:14] MED LIST changes: +CIPRO500 MG PO
[2021-06-03 15:53] VITALS: BP 140/66
[2021-06-03] MEDS ORDERED: LANTUS SOL100 UNIT/1 SC (16:11)
== END 2021-06-03 18:18 | disposition home or self-care (01) ==
LOC: ED 15:14
DX: M79.605 Pain in left leg (principal); Z88.6 Allergy status to analgesic agent; Z79.899 Other long term (current) drug therapy; Z98.890 Other specified postprocedural states; Z87.891 Personal history of nicotine dependence

== ENCOUNTER 2021-06-05 13:03 | Emergency (ER) | payer MEDICARE ==
[~2021-06-05] VITALS: Ht 177.8 cm; Wt 108.9 kg
[~2021-06-05 13:03] MED LIST changes: +LANTUS SOL100 UNIT/1 SC
[2021-06-05 13:08] VITALS: BP 144/57
[2021-06-05 13:37] LABS: BASO % 0.4 % (0.0-1.0); EOS # 0.3 10*3/uL (0.0-0.4); EOS % 3.3 % (1.0-4.0); HEMATOCRIT 45.5 % (42.0-52.0); LYMPH # 2.6 10*3/uL (1.3-4.4); LYMPH % 27.4 % (27.0-41.0); MEAN CELL VOLUME 90.8 fl (80.0-94.0); MEAN CORPUSCULAR HGB 30.3 pg (27.0-31.0); MEAN CORPUSCULAR HGB CONC 33.4 g/dl (33.0-37.0); MEAN PLATELET VOLUME 10.6 fl (9.6-12.3); MONO # 0.7 10*3/uL (0.1-1.0); MONO % 7.4 % (3.0-9.0); NEUT # 5.8 10*3/uL (2.3-7.9); NEUT % 61.2 % (47.0-73.0); PLATELET COUNT AUTOMATED 180 10*3/uL (130-400); RED BLOOD COUNT 5.01 10*6/uL (4.50-5.90); RED CELL DISTRI WIDTH 13.4 % (0-14.5); WHITE BLOOD COUNT 9.5 10*3/uL (4.8-10.8)
[2021-06-05] MEDS ORDERED: CEPHALEXIN500 M1 PO (13:46)
[2021-06-05 13:49] LABS: BUN 11 mg/dl (7-24); CHLORIDE 106 mmol/L (98-107); CREATININE 1.03 mg/dL (0.70-1.30); POTASSIUM 4.3 mmol/L (3.5-5.1); SODIUM 137 mmol/L (136-145)
== END 2021-06-05 14:40 | disposition home or self-care (01) ==
LOC: ED 13:03
PROVIDERS: Emergency Medicine
DX: S90.112A Contusion of left great toe without damage to nail, initial encounter (principal); L03.032 Cellulitis of left toe; E11.65 Type 2 diabetes mellitus with hyperglycemia; I25.10 Atherosclerotic heart disease of native coronary artery without angina pectoris; I10 Essential (primary) hypertension; E78.5 Hyperlipidemia, unspecified; E11.9 Type 2 diabetes mellitus without complications; Z79.899 Other long term (current) drug therapy; Z88.6 Allergy status to analgesic agent; Z98.890 Other specified postprocedural states; Z87.891 Personal history of nicotine dependence; X58.XXXA Exposure to other specified factors, initial encounter; Y93.89 Activity, other specified; Y92.89 Other specified places as the place of occurrence of the external cause; Y99.8 Other external cause status

== ENCOUNTER 2021-11-25 19:24 | Emergency (ER) | payer MEDICARE ==
[~2021-11-25] VITALS: Ht 177.8 cm; Wt 108.9 kg
[~2021-11-25 19:24] MED LIST changes: +CEPHALEXIN500 M1 PO
[2021-11-25 20:52] VITALS: BP 130/59
[2021-11-25] MEDS ORDERED: GLIPIZIDE10 M1 PO (20:53)
== END 2021-11-26 00:11 | disposition home or self-care (01) ==
LOC: ED 19:24
DX: S61.012A Laceration without foreign body of left thumb without damage to nail, initial encounter (principal); S60.222A Contusion of left hand, initial encounter; F17.200 Nicotine dependence, unspecified, uncomplicated; Z88.8 Allergy status to other drugs, medicaments and biological substances; Z79.899 Other long term (current) drug therapy; Z98.890 Other specified postprocedural states; W22.8XXA Striking against or struck by other objects, initial encounter; Y93.89 Activity, other specified; Y92.89 Other specified places as the place of occurrence of the external cause; Y99.8 Other external cause status

== ENCOUNTER → 2021-12-14 | Outpatient (CLI) | payer MEDICARE ==
[~2021-12-14] MED LIST changes: +GLIPIZIDE10 M1 PO
== END | disposition home or self-care (01) ==
LOC: RAD 14:32
PROVIDERS: ATTEND Student in an Organized Health Care Education/Training Program
DX: M17.11 Unilateral primary osteoarthritis, right knee (principal); M16.11 Unilateral primary osteoarthritis, right hip

== ENCOUNTER → 2022-04-23 | Outpatient (CLI) | payer MEDICARE | END | disposition home or self-care (01) | LOC: RAD 15:41 | PROVIDERS: ATTEND Orthopaedic Surgery | DX: M25.512 Pain in left shoulder (principal) ==

== ENCOUNTER → 2022-06-18 | Outpatient (CLI) | payer OTHER | END | disposition home or self-care (01) | LOC: CT 00:13 | PROVIDERS: ATTEND Psychiatry & Neurology Psychiatry | DX: G31.09 Other frontotemporal neurocognitive disorder (principal); R90.82 White matter disease, unspecified ==

== ENCOUNTER → 2022-07-16 | Outpatient (CLI) | payer MEDICARE ==
[2022-07-16 16:34] LABS: INTERNATIONAL NORM RATIO 0.9 (2.0-3.5)
[2022-07-17 08:08] LABS: HBSAG Negative (Negative); HEP B CORE AB, IGM Negative (Negative); HEPATITIS C ANTIBODY Non Reactive (Non Reactive)
== END | disposition home or self-care (01) ==
LOC: LAB 15:47
PROVIDERS: ATTEND Internal Medicine Gastroenterology
DX: R94.5 Abnormal results of liver function studies (principal)

== ENCOUNTER → 2022-09-06 | Outpatient (CLI) | payer MEDICARE ==
[2022-09-06 11:57] LABS: BASO % 0.5 % (0.0-1.0); EOS # 0.3 10*3/uL (0.0-0.4); EOS % 3.9 % (1.0-4.0); HEMATOCRIT 39.2 % (42.0-52.0); LYMPH # 2.7 10*3/uL (1.3-4.4); LYMPH % 32.5 % (27.0-41.0); MEAN CELL VOLUME 83.6 fl (80.0-94.0); MEAN CORPUSCULAR HGB CONC 31.1 g/dl (33.0-37.0); MEAN PLATELET VOLUME 10.7 fl (9.6-12.3); MONO # 0.8 10*3/uL (0.1-1.0); MONO % 9.3 % (3.0-9.0); NEUT # 4.5 10*3/uL (2.3-7.9); NEUT % 53.3 % (47.0-73.0); PLATELET COUNT AUTOMATED 229 10*3/uL (130-400); RED BLOOD COUNT 4.69 10*6/uL (4.50-5.90); RED CELL DISTRI WIDTH 14.1 % (0-14.5); WHITE BLOOD COUNT 8.4 10*3/uL (4.8-10.8)
[2022-09-06 12:10] LABS: ACT PARTIAL THROMBO TIME 24.8 SECONDS (20.0-32.1); INTERNATIONAL NORM RATIO 0.9 (2.0-3.5)
[2022-09-06 12:39] LABS: ALKALINE PHOSPHATASE 92 U/L (46-116); BUN 10 mg/dl (9-23); CHLORIDE 101 mmol/L (98-107); POTASSIUM 3.5 mmol/L (3.4-5.1); SGPT/ALT 43 U/L (10-49); TOTAL PROTEIN 7.4 gm/dL (6.0-8.0)
== END | disposition home or self-care (01) ==
LOC: LAB 11:15
PROVIDERS: ATTEND Urology
DX: Z01.812 Encounter for preprocedural laboratory examination (principal); J44.9 Chronic obstructive pulmonary disease, unspecified; Z79.01 Long term (current) use of anticoagulants

== ENCOUNTER → 2022-10-06 | Outpatient (CLI) | payer MEDICARE ==
[2022-10-06 11:25] LABS: BASO # 0.1 10*3/uL (0.0-0.1); BASO % 0.5 % (0.0-1.0); EOS # 0.3 10*3/uL (0.0-0.4); EOS % 3.5 % (1.0-4.0); HEMATOCRIT 39.2 % (42.0-52.0); LYMPH # 2.7 10*3/uL (1.3-4.4); LYMPH % 27.9 % (27.0-41.0); MEAN CELL VOLUME 82.5 fl (80.0-94.0); MEAN CORPUSCULAR HGB 26.1 pg (27.0-31.0); MEAN CORPUSCULAR HGB CONC 31.6 g/dl (33.0-37.0); MEAN PLATELET VOLUME 10.6 fl (9.6-12.3); MONO # 0.8 10*3/uL (0.1-1.0); NEUT # 5.9 10*3/uL (2.3-7.9); NEUT % 59.9 % (47.0-73.0); PLATELET COUNT AUTOMATED 234 10*3/uL (130-400); RED BLOOD COUNT 4.75 10*6/uL (4.50-5.90); RED CELL DISTRI WIDTH 14.4 % (0-14.5); WHITE BLOOD COUNT 9.8 10*3/uL (4.8-10.8)
[2022-10-06 11:36] LABS: ACT PARTIAL THROMBO TIME 23.1 SECONDS (20.0-32.1)
[2022-10-06 12:03] LABS: ALKALINE PHOSPHATASE 95 U/L (46-116); BUN 9 mg/dl (9-23); CHLORIDE 103 mmol/L (98-107); POTASSIUM 4.1 mmol/L (3.4-5.1); SGPT/ALT 50 U/L (10-49); T3 UPTAKE 27.7 % (22.4-36.7); THYROXINE (T4) TOTAL 6.2 ug/dl (4.5-10.9); TOTAL PROTEIN 7.4 gm/dL (6.0-8.0)
[2022-10-06 12:05] LABS: TESTOSTERONE, TOTAL 121 ng/dL (113-882)
== END | disposition home or self-care (01) ==
LOC: LAB 11:01
PROVIDERS: ATTEND Urology
DX: Z12.5 Encounter for screening for malignant neoplasm of prostate (principal); M79.609 Pain in unspecified limb; R53.82 Chronic fatigue, unspecified; I10 Essential (primary) hypertension

== ENCOUNTER → 2022-11-17 | Outpatient (CLI) | payer MEDICARE ==
[2022-11-17 13:39] LABS: BASO % 0.3 % (0.0-1.0); EOS # 0.3 10*3/uL (0.0-0.4); EOS % 3.6 % (1.0-4.0); HEMATOCRIT 39.3 % (42.0-52.0); LYMPH # 2.9 10*3/uL (1.3-4.4); LYMPH % 32.2 % (27.0-41.0); MEAN CELL VOLUME 80.4 fl (80.0-94.0); MEAN CORPUSCULAR HGB 24.1 pg (27.0-31.0); MEAN PLATELET VOLUME 10.8 fl (9.6-12.3); MONO # 0.8 10*3/uL (0.1-1.0); MONO % 8.7 % (3.0-9.0); NEUT # 4.9 10*3/uL (2.3-7.9); PLATELET COUNT AUTOMATED 247 10*3/uL (130-400); RED BLOOD COUNT 4.89 10*6/uL (4.50-5.90); RED CELL DISTRI WIDTH 15.6 % (0-14.5); WHITE BLOOD COUNT 8.9 10*3/uL (4.8-10.8)
[2022-11-17 14:10] LABS: ALKALINE PHOSPHATASE 73 U/L (46-116); BUN 10 mg/dl (9-23); CHLORIDE 100 mmol/L (98-107); POTASSIUM 3.5 mmol/L (3.4-5.1); SGPT/ALT 52 U/L (10-49); TOTAL PROTEIN 7.8 gm/dL (6.0-8.0)
[2022-11-17 14:11] LABS: TESTOSTERONE, TOTAL 122 ng/dL (113-882)
== END | disposition home or self-care (01) ==
LOC: LAB 13:12
PROVIDERS: ATTEND Urology
DX: Z12.5 Encounter for screening for malignant neoplasm of prostate (principal); R53.83 Other fatigue

== ENCOUNTER → 2023-02-08 | Outpatient (CLI) | payer MEDICARE ==
[~2023-02-08] MED LIST changes: +FINASTERIDE5 M1 PO; +GOOD SENSE ALLE10 M2 PO; +K-TAB10 MEQ PO; +NAMENDA10 MG PO; +NOVOLOG FL100 UNIT/2 SC; +PREGABALIN75 MG PO; +TESTOSTERO200 MG/1 M IM; +VITAMIN D350 MCG PO
[2023-02-08 17:47] LABS: BASO # 0.1 10*3/uL (0.0-0.1); BASO % 0.8 % (0.0-1.0); EOS % 19.4 % (1.0-4.0); HEMATOCRIT 40.9 % (42.0-52.0); LYMPH # 3.7 10*3/uL (1.3-4.4); LYMPH % 36.9 % (27.0-41.0); MEAN CELL VOLUME 79.9 fl (80.0-94.0); MEAN CORPUSCULAR HGB 23.4 pg (27.0-31.0); MEAN CORPUSCULAR HGB CONC 29.3 g/dl (33.0-37.0); MONO # 0.9 10*3/uL (0.1-1.0); MONO % 8.4 % (3.0-9.0); NEUT # 3.5 10*3/uL (2.3-7.9); NEUT % 34.1 % (47.0-73.0); PLATELET COUNT AUTOMATED 254 10*3/uL (130-400); RED BLOOD COUNT 5.12 10*6/uL (4.50-5.90); RED CELL DISTRI WIDTH 18.2 % (0-14.5); WHITE BLOOD COUNT 10.1 10*3/uL (4.8-10.8)
[2023-02-08 18:25] LABS: ALKALINE PHOSPHATASE 81 U/L (46-116); BUN 8 mg/dl (9-23); CHLORIDE 107 mmol/L (98-107); POTASSIUM 3.9 mmol/L (3.4-5.1); SGPT/ALT 33 U/L (5-49); TOTAL PROTEIN 7.1 gm/dL (6.0-8.0)
== END | disposition home or self-care (01) ==
LOC: LAB 17:27
PROVIDERS: ATTEND Urology
DX: Z12.5 Encounter for screening for malignant neoplasm of prostate (principal); R53.83 Other fatigue

== ENCOUNTER → 2023-02-28 | Outpatient (CLI) | payer MEDICARE ==
[2023-02-28 17:36] LABS: BASO # 0.1 10*3/uL (0.0-0.1); BASO % 0.5 % (0.0-1.0); EOS # 0.7 10*3/uL (0.0-0.4); EOS % 6.3 % (1.0-4.0); HEMATOCRIT 42.5 % (42.0-52.0); LYMPH # 2.9 10*3/uL (1.3-4.4); LYMPH % 28.1 % (27.0-41.0); MEAN CELL VOLUME 79.3 fl (80.0-94.0); MEAN CORPUSCULAR HGB 23.7 pg (27.0-31.0); MEAN CORPUSCULAR HGB CONC 29.9 g/dl (33.0-37.0); MEAN PLATELET VOLUME 9.8 fl (9.6-12.3); MONO # 0.7 10*3/uL (0.1-1.0); MONO % 6.5 % (3.0-9.0); NEUT % 58.3 % (47.0-73.0); PLATELET COUNT AUTOMATED 228 10*3/uL (130-400); RED BLOOD COUNT 5.36 10*6/uL (4.50-5.90); RED CELL DISTRI WIDTH 18.3 % (0-14.5); WHITE BLOOD COUNT 10.4 10*3/uL (4.8-10.8)
[2023-02-28 18:02] LABS: TOTAL PROTEIN 7.5 gm/dL (6.0-8.0)
[2023-02-28 18:03] LABS: ALKALINE PHOSPHATASE 84 U/L (46-116); BUN 10 mg/dl (9-23); CHLORIDE 99 mmol/L (98-107); POTASSIUM 3.9 mmol/L (3.4-5.1); SGPT/ALT 46 U/L (5-49); TOTAL PROTEIN 7.6 gm/dL (6.0-8.0)
== END | disposition home or self-care (01) ==
LOC: LAB 17:07
PROVIDERS: Internal Medicine Gastroenterology; ATTEND Urology
DX: D40.0 Neoplasm of uncertain behavior of prostate (principal); R53.83 Other fatigue; E11.42 Type 2 diabetes mellitus with diabetic polyneuropathy; D64.9 Anemia, unspecified; Z79.899 Other long term (current) drug therapy

== ENCOUNTER 2023-03-07 09:57 | Emergency (ER) | payer MEDICARE ==
[~2023-03-07] VITALS: Wt 108.0 kg
[2023-03-07 10:21] LABS: BASO # 0.1 10*3/uL (0.0-0.1); BASO % 0.8 % (0.0-1.0); EOS # 0.6 10*3/uL (0.0-0.4); EOS % 7.1 % (1.0-4.0); HEMATOCRIT 41.3 % (42.0-52.0); LYMPH # 3.2 10*3/uL (1.3-4.4); LYMPH % 40.4 % (27.0-41.0); MEAN CELL VOLUME 79.4 fl (80.0-94.0); MEAN CORPUSCULAR HGB 23.8 pg (27.0-31.0); MEAN PLATELET VOLUME 9.7 fl (9.6-12.3); MONO # 0.7 10*3/uL (0.1-1.0); MONO % 8.6 % (3.0-9.0); NEUT # 3.4 10*3/uL (2.3-7.9); NEUT % 42.7 % (47.0-73.0); PLATELET COUNT AUTOMATED 221 10*3/uL (130-400); RED CELL DISTRI WIDTH 18.4 % (0-14.5); WHITE BLOOD COUNT 7.9 10*3/uL (4.8-10.8)
[2023-03-07] MEDS ORDERED: GLUMETZA500 MG PO (10:30)
[2023-03-07 10:33] LABS: ACT PARTIAL THROMBO TIME 26.2 SECONDS (20.0-32.1)
[2023-03-07] MEDS ORDERED: OZEMPIC0.25 MG/03 SQ (10:33)
[2023-03-07] MEDS ORDERED: MASON NATURAL500 MG PO (10:34)
[2023-03-07] MEDS ORDERED: MILK THISTLE150 MG PO (10:35)
[2023-03-07] MEDS ORDERED: IRON325 M3 PO (10:36)
[2023-03-07 10:42] LABS: ALKALINE PHOSPHATASE 71 U/L (46-116); BUN 9 mg/dl (9-23); CHLORIDE 106 mmol/L (98-107); POTASSIUM 3.6 mmol/L (3.4-5.1); SGPT/ALT 44 U/L (5-49); TOTAL PROTEIN 7.3 gm/dL (6.0-8.0)
[2023-03-07] MEDS ORDERED: TRAMADOL HCL50 MG PO (11:22)
[2023-03-07 11:25] VITALS: BP 115/60
== END 2023-03-07 11:40 | disposition home or self-care (01) ==
LOC: ED 09:57
PROVIDERS: Emergency Medicine
DX: R07.89 Other chest pain (principal); R11.2 Nausea with vomiting, unspecified; I25.10 Atherosclerotic heart disease of native coronary artery without angina pectoris; I10 Essential (primary) hypertension; E11.9 Type 2 diabetes mellitus without complications; E78.5 Hyperlipidemia, unspecified; J44.9 Chronic obstructive pulmonary disease, unspecified; K21.9 Gastro-esophageal reflux disease without esophagitis; F32.A Depression, unspecified; Z88.5 Allergy status to narcotic agent; Z88.8 Allergy status to other drugs, medicaments and biological substances; Z98.890 Other specified postprocedural states; F10.10 Alcohol abuse, uncomplicated; F17.200 Nicotine dependence, unspecified, uncomplicated

== ENCOUNTER → 2023-04-12 | Outpatient (CLI) | payer MEDICARE ==
[~2023-04-12] MED LIST changes: +GLUMETZA500 MG PO; +IRON325 M3 PO; +MASON NATURAL500 MG PO; +MILK THISTLE150 MG PO; +OZEMPIC0.25 MG/03 SQ
== END | disposition home or self-care (01) ==
LOC: EDSTATUS 03-31 11:00 → LAB 01:04
PROVIDERS: Radiology Diagnostic Radiology; ATTEND Nurse Practitioner Family
DX: K74.60 Unspecified cirrhosis of liver (principal); R14.0 Abdominal distension (gaseous)

== ENCOUNTER → 2023-05-13 | Outpatient (CLI) | payer MEDICARE ==
[2023-05-13 17:26] LABS: BASO % 0.4 % (0.0-1.0); EOS # 0.4 10*3/uL (0.0-0.4); EOS % 3.4 % (1.0-4.0); HEMATOCRIT 40.1 % (42.0-52.0); LYMPH # 3.5 10*3/uL (1.3-4.4); LYMPH % 32.6 % (27.0-41.0); MEAN CELL VOLUME 82.9 fl (80.0-94.0); MEAN CORPUSCULAR HGB 26.2 pg (27.0-31.0); MEAN CORPUSCULAR HGB CONC 31.7 g/dl (33.0-37.0); MEAN PLATELET VOLUME 9.7 fl (9.6-12.3); MONO # 0.8 10*3/uL (0.1-1.0); NEUT # 6.1 10*3/uL (2.3-7.9); NEUT % 56.2 % (47.0-73.0); PLATELET COUNT AUTOMATED 229 10*3/uL (130-400); RED BLOOD COUNT 4.84 10*6/uL (4.50-5.90); RED CELL DISTRI WIDTH 19.3 % (0-14.5); WHITE BLOOD COUNT 10.7 10*3/uL (4.8-10.8)
[2023-05-13 18:23] LABS: ALKALINE PHOSPHATASE 67 U/L (46-116); BUN 12 mg/dl (9-23); CHLORIDE 100 mmol/L (98-107); SGPT/ALT 47 U/L (5-49); TOTAL PROTEIN 7.5 gm/dL (6.0-8.0)
== END | disposition home or self-care (01) ==
LOC: LAB 17:12
PROVIDERS: ATTEND Urology
DX: Z12.5 Encounter for screening for malignant neoplasm of prostate (principal); D40.0 Neoplasm of uncertain behavior of prostate; E03.9 Hypothyroidism, unspecified; R53.83 Other fatigue

== ENCOUNTER 2023-06-13 17:04 | Emergency (ER) | payer MEDICARE ==
[~2023-06-13] VITALS: Ht 177.8 cm; Wt 108.9 kg
[2023-06-13] MEDS ORDERED: LIPITOR40 MG PO (17:21)
[2023-06-13] MEDS ORDERED: WELLBUTRIN SR100 MG PO (17:22)
[2023-06-13] MEDS ORDERED: DEPO TESTOS200 MG/ML IM (17:22)
[2023-06-13 17:57] LABS: BASO # 0.1 10*3/uL (0.0-0.1); BASO % 0.6 % (0.0-1.0); EOS # 0.5 10*3/uL (0.0-0.4); EOS % 5.4 % (1.0-4.0); HEMATOCRIT 42.7 % (42.0-52.0); LYMPH # 3.6 10*3/uL (1.3-4.4); LYMPH % 35.5 % (27.0-41.0); MEAN CELL VOLUME 86.3 fl (80.0-94.0); MEAN CORPUSCULAR HGB 26.7 pg (27.0-31.0); MEAN CORPUSCULAR HGB CONC 30.9 g/dl (33.0-37.0); MEAN PLATELET VOLUME 9.8 fl (9.6-12.3); MONO # 0.8 10*3/uL (0.1-1.0); MONO % 7.5 % (3.0-9.0); NEUT # 5.1 10*3/uL (2.3-7.9); NEUT % 50.8 % (47.0-73.0); PLATELET COUNT AUTOMATED 259 10*3/uL (130-400); RED BLOOD COUNT 4.95 10*6/uL (4.50-5.90); RED CELL DISTRI WIDTH 17.1 % (0-14.5); WHITE BLOOD COUNT 10.1 10*3/uL (4.8-10.8)
[2023-06-13 18:12] LABS: ACT PARTIAL THROMBO TIME 24.2 SECONDS (20.0-32.1)
[2023-06-13 18:19] LABS: ALKALINE PHOSPHATASE 89 U/L (46-116); BUN 9 mg/dl (9-23); CHLORIDE 102 mmol/L (98-107); CPK 84 U/L (34-171); LIPASE 52 U/L (12-53); SGPT/ALT 32 U/L (5-49); TOTAL PROTEIN 7.4 gm/dL (6.0-8.0)
[2023-06-13 18:21] LABS: ETHYL ALCOHOL < 3.0 mg/dl (<3)
[2023-06-13] MEDS ORDERED: SODIUM CHLORIDE 0.9% 1,000 ML IV ONE (18:35)
[2023-06-13] MEDS ORDERED: Albuterol Sulf/Ipratropium 3 ML VIAL NEB ONE (19:55)
[2023-06-13] MEDS ORDERED: INSULIN REGULAR, HUMAN 1 UNIT/0.01 ML IV ONE (19:55)
[2023-06-13] MEDS ORDERED: methylPREDNISolone sod succ 125 MG VIAL IV ONE (19:55)
[2023-06-13 22:24] LABS: BILIRUBIN Negative (Negative); CLARITY Clear (Clear); COLOR Yellow (Yellow); GLUCOSE 3+ (Negative); KETONE Negative (Negative); NITRITE Negative (Negative); SPECIFIC GRAVITY >= 1.030 (1.001-1.030)
[2023-06-13 22:42] LABS: BACTERIA 1+; BLOOD Trace-Lysed (Negative); LEUKO ESTERASE 1+ (Negative); WBC 21-30 wbc/hpf (0-5)
[2023-06-13] MEDS ORDERED: Ceftriaxone Sodium 1 GM/10 ML SYR IV ONE (22:45)
[2023-06-13] MEDS ORDERED: OMNICEF300 MG PO (23:11)
[2023-06-13 23:24] VITALS: BP 134/72
== END 2023-06-13 23:22 | disposition home or self-care (01) ==
LOC: ED 17:04
PROVIDERS: Nurse Practitioner Family
DX: N39.0 Urinary tract infection, site not specified (principal); R14.0 Abdominal distension (gaseous); J44.9 Chronic obstructive pulmonary disease, unspecified; E11.65 Type 2 diabetes mellitus with hyperglycemia; I25.10 Atherosclerotic heart disease of native coronary artery without angina pectoris; F32.A Depression, unspecified; I10 Essential (primary) hypertension; E78.5 Hyperlipidemia, unspecified; E11.9 Type 2 diabetes mellitus without complications; F03.90 Unspecified dementia, unspecified severity, without behavioral disturbance, psychotic disturbance, mood disturbance, and anxiety; F17.200 Nicotine dependence, unspecified, uncomplicated; Z88.6 Allergy status to analgesic agent; Z88.5 Allergy status to narcotic agent; Z79.4 Long term (current) use of insulin; Z79.899 Other long term (current) drug therapy; Z79.82 Long term (current) use of aspirin; Z95.5 Presence of coronary angioplasty implant and graft; Z98.890 Other specified postprocedural states

== ENCOUNTER → 2023-07-16 | Outpatient (CLI) | payer MEDICARE ==
[~2023-07-16] MED LIST changes: +DEPO TESTOS200 MG/ML IM; +OMNICEF300 MG PO; +WELLBUTRIN SR100 MG PO
== END ==
LOC: US 00:19
PROVIDERS: ATTEND Nurse Practitioner Family
DX: K76.0 Fatty (change of) liver, not elsewhere classified (principal); K74.60 Unspecified cirrhosis of liver

== ENCOUNTER → 2023-07-29 | Outpatient (CLI) | payer MEDICARE ==
[2023-07-29 10:55] LABS: BASO # 0.1 10*3/uL (0.0-0.1); BASO % 0.6 % (0.0-1.0); EOS # 0.4 10*3/uL (0.0-0.4); EOS % 3.7 % (1.0-4.0); HEMATOCRIT 43.9 % (42.0-52.0); LYMPH # 4.9 10*3/uL (1.3-4.4); LYMPH % 41.8 % (27.0-41.0); MEAN CELL VOLUME 85.9 fl (80.0-94.0); MEAN CORPUSCULAR HGB 25.6 pg (27.0-31.0); MEAN CORPUSCULAR HGB CONC 29.8 g/dl (33.0-37.0); MEAN PLATELET VOLUME 10.7 fl (9.6-12.3); MONO # 1.1 10*3/uL (0.1-1.0); MONO % 9.6 % (3.0-9.0); NEUT # 5.1 10*3/uL (2.3-7.9); PLATELET COUNT AUTOMATED 247 10*3/uL (130-400); RED BLOOD COUNT 5.11 10*6/uL (4.50-5.90); RED CELL DISTRI WIDTH 14.1 % (0-14.5); WHITE BLOOD COUNT 11.7 10*3/uL (4.8-10.8)
[2023-07-29 11:26] LABS: ALKALINE PHOSPHATASE 61 U/L (46-116); BUN 9 mg/dl (9-23); CHLORIDE 103 mmol/L (98-107); POTASSIUM 3.8 mmol/L (3.4-5.1); SGPT/ALT 37 U/L (5-49); TOTAL PROTEIN 7.4 gm/dL (6.0-8.0)
== END | disposition home or self-care (01) ==
LOC: LAB 10:34
PROVIDERS: ATTEND Urology
DX: D40.0 Neoplasm of uncertain behavior of prostate (principal); R53.83 Other fatigue

== ENCOUNTER → 2023-10-07 | Outpatient (CLI) | payer MEDICARE ==
[2023-10-07 16:11] LABS: BASO # 0.1 10*3/uL (0.0-0.1); BASO % 0.5 % (0.0-1.0); EOS # 0.4 10*3/uL (0.0-0.4); EOS % 3.3 % (1.0-4.0); HEMATOCRIT 47.9 % (42.0-52.0); LYMPH # 3.5 10*3/uL (1.3-4.4); LYMPH % 31.8 % (27.0-41.0); MEAN CELL VOLUME 83.9 fl (80.0-94.0); MEAN CORPUSCULAR HGB 25.2 pg (27.0-31.0); MEAN CORPUSCULAR HGB CONC 30.1 g/dl (33.0-37.0); MONO # 1.1 10*3/uL (0.1-1.0); MONO % 9.9 % (3.0-9.0); PLATELET COUNT AUTOMATED 203 10*3/uL (130-400); RED BLOOD COUNT 5.71 10*6/uL (4.50-5.90); RED CELL DISTRI WIDTH 19.9 % (0-14.5); WHITE BLOOD COUNT 11.1 10*3/uL (4.8-10.8)
[2023-10-07 16:31] LABS: ALKALINE PHOSPHATASE 70 U/L (46-116); BUN 13 mg/dl (9-23); CHLORIDE 102 mmol/L (98-107); POTASSIUM 4.7 mmol/L (3.4-5.1); SGPT/ALT 33 U/L (5-49); TOTAL PROTEIN 7.6 gm/dL (6.0-8.0)
== END | disposition home or self-care (01) ==
LOC: LAB 15:56
PROVIDERS: ATTEND Urology
DX: Z12.5 Encounter for screening for malignant neoplasm of prostate (principal); D40.0 Neoplasm of uncertain behavior of prostate; R53.83 Other fatigue

== ENCOUNTER → 2023-11-17 | Outpatient (CLI) | payer MEDICARE | END | disposition home or self-care (01) | LOC: LAB 11:27 | PROVIDERS: ATTEND Internal Medicine Endocrinology, Diabetes & Metabolism | DX: E11.42 Type 2 diabetes mellitus with diabetic polyneuropathy (principal) ==

== ENCOUNTER 2023-11-25 15:34 | Emergency (ER) | payer MEDICARE ==
[~2023-11-25] VITALS: Ht 177.8 cm; Wt 112.5 kg
[2023-11-25 15:52] VITALS: BP 126/67
== END 2023-11-25 18:49 | disposition home or self-care (01) ==
LOC: ED 15:34
DX: S20.211A Contusion of right front wall of thorax, initial encounter (principal); G89.29 Other chronic pain; M54.9 Dorsalgia, unspecified; J44.9 Chronic obstructive pulmonary disease, unspecified; K21.9 Gastro-esophageal reflux disease without esophagitis; F32.A Depression, unspecified; E11.9 Type 2 diabetes mellitus without complications; F10.10 Alcohol abuse, uncomplicated; F17.200 Nicotine dependence, unspecified, uncomplicated; Z88.5 Allergy status to narcotic agent; Z98.890 Other specified postprocedural states; V89.9XXA Person injured in unspecified vehicle accident, initial encounter; Y93.89 Activity, other specified; Y92.89 Other specified places as the place of occurrence of the external cause; Y99.8 Other external cause status

== ENCOUNTER → 2023-12-01 | Outpatient (CLI) | payer MEDICARE | END | disposition home or self-care (01) | LOC: LAB 09:08 | PROVIDERS: ATTEND Internal Medicine Endocrinology, Diabetes & Metabolism | DX: E11.42 Type 2 diabetes mellitus with diabetic polyneuropathy (principal) ==

== ENCOUNTER → 2023-12-27 | Outpatient (CLI) | payer MEDICARE ==
[2023-12-27 16:36] LABS: BASO # 0.1 10*3/uL (0.0-0.1); BASO % 0.6 % (0.0-1.0); EOS # 0.4 10*3/uL (0.0-0.4); EOS % 3.9 % (1.0-4.0); HEMATOCRIT 51.3 % (42.0-52.0); LYMPH # 3.5 10*3/uL (1.3-4.4); LYMPH % 34.6 % (27.0-41.0); MEAN CELL VOLUME 88.3 fl (80.0-94.0); MEAN CORPUSCULAR HGB 27.9 pg (27.0-31.0); MEAN CORPUSCULAR HGB CONC 31.6 g/dl (33.0-37.0); MEAN PLATELET VOLUME 9.8 fl (9.6-12.3); MONO # 0.9 10*3/uL (0.1-1.0); MONO % 8.8 % (3.0-9.0); NEUT # 5.2 10*3/uL (2.3-7.9); NEUT % 51.8 % (47.0-73.0); PLATELET COUNT AUTOMATED 197 10*3/uL (130-400); RED BLOOD COUNT 5.81 10*6/uL (4.50-5.90); RED CELL DISTRI WIDTH 16.9 % (0-14.5)
[2023-12-27 16:59] LABS: ALKALINE PHOSPHATASE 75 U/L (46-116); BUN 6 mg/dl (9-23); CHLORIDE 105 mmol/L (98-107); POTASSIUM 4.2 mmol/L (3.4-5.1); SGPT/ALT 42 U/L (5-49); TOTAL PROTEIN 7.6 gm/dL (6.0-8.0)
== END | disposition home or self-care (01) ==
LOC: LAB 16:18
PROVIDERS: ATTEND Urology
DX: Z12.5 Encounter for screening for malignant neoplasm of prostate (principal); D40.0 Neoplasm of uncertain behavior of prostate; R53.83 Other fatigue

== ENCOUNTER 2024-03-13 15:06 | Emergency (ER) | payer MEDICARE ==
[~2024-03-13] VITALS: Ht 152.4 cm; Wt 111.6 kg
[~2024-03-13 15:06] MED LIST changes: +CYMBALTA60 MG PO; +DIOVAN40 MG PO; +DOXYCYCLINE MO100 MG PO; +FEROSUL325 MG PO; +GLIMEPIRIDE2 MG PO; +MOUNJARO5 MG/0.51 SQ; +Mysoline50 MG PO; +TOPIRAMATE ER50 MG PO
[2024-03-13 15:13] VITALS: BP 118/60
[2024-03-13] MEDS ORDERED: Ondansetron Hydrochloride 4 MG/2 ML VIAL IV ONE (15:20)
[2024-03-13] MEDS ORDERED: MORPHINE Sulfate 2 MG/ML SYR IV ONE (15:20)
[2024-03-13] MEDS ORDERED: SODIUM CHLORIDE 0.9% 1,000 ML IV ONE (15:20)
[2024-03-13 15:34] LABS: BASO % 0.4 % (0.0-1.0); EOS # 0.4 10*3/uL (0.0-0.4); EOS % 3.5 % (1.0-4.0); MEAN CELL VOLUME 90.1 fl (80.0-94.0); MEAN CORPUSCULAR HGB 29.5 pg (27.0-31.0); MEAN CORPUSCULAR HGB CONC 32.8 g/dl (33.0-37.0); MEAN PLATELET VOLUME 10.7 fl (9.6-12.3); MONO # 0.9 10*3/uL (0.1-1.0); MONO % 8.8 % (3.0-9.0); NEUT # 5.5 10*3/uL (2.3-7.9); NEUT % 53.6 % (47.0-73.0); PLATELET COUNT AUTOMATED 182 10*3/uL (130-400); RED BLOOD COUNT 5.55 10*6/uL (4.50-5.90); RED CELL DISTRI WIDTH 15.1 % (0-14.5); WHITE BLOOD COUNT 10.2 10*3/uL (4.8-10.8)
[2024-03-13 15:59] LABS: BUN 15 mg/dl (9-23); CHLORIDE 102 mmol/L (98-107); POTASSIUM 3.6 mmol/L (3.4-5.1)
== END 2024-03-13 16:30 | disposition home or self-care (01) ==
LOC: ED 15:06
PROVIDERS: Emergency Medicine
DX: R07.89 Other chest pain (principal); I25.2 Old myocardial infarction; I25.10 Atherosclerotic heart disease of native coronary artery without angina pectoris; E11.9 Type 2 diabetes mellitus without complications; I10 Essential (primary) hypertension; E78.5 Hyperlipidemia, unspecified; F17.200 Nicotine dependence, unspecified, uncomplicated; Z95.5 Presence of coronary angioplasty implant and graft; Z88.6 Allergy status to analgesic agent; Z79.899 Other long term (current) drug therapy; Z79.82 Long term (current) use of aspirin; Z79.4 Long term (current) use of insulin; Z98.890 Other specified postprocedural states

== ENCOUNTER → 2024-03-27 | Outpatient (CLI) | payer MEDICARE ==
[~2024-03-27] MED LIST changes: +ALDACTONE50 M1 PO; +FUROSEMIDE40 MG PO; +POTASSIUM CHLO10 MEQ PO; +TRELEGY ELLIPT1 EACH INH; +VALSARTAN40 MG PO; +XIFAXAN550 MG PO
[2024-03-27 12:23] LABS: BASO # 0.1 10*3/uL (0.0-0.1); BASO % 0.7 % (0.0-1.0); EOS # 0.7 10*3/uL (0.0-0.4); HEMATOCRIT 51.5 % (42.0-52.0); MEAN CELL VOLUME 90.8 fl (80.0-94.0); MEAN CORPUSCULAR HGB 29.8 pg (27.0-31.0); MEAN CORPUSCULAR HGB CONC 32.8 g/dl (33.0-37.0); MEAN PLATELET VOLUME 11.3 fl (9.6-12.3); MONO # 0.8 10*3/uL (0.1-1.0); MONO % 7.6 % (3.0-9.0); NEUT # 4.7 10*3/uL (2.3-7.9); NEUT % 44.9 % (47.0-73.0); PLATELET COUNT AUTOMATED 195 10*3/uL (130-400); RED BLOOD COUNT 5.67 10*6/uL (4.50-5.90); RED CELL DISTRI WIDTH 14.2 % (0-14.5); WHITE BLOOD COUNT 10.5 10*3/uL (4.8-10.8)
[2024-03-27 12:51] LABS: TOTAL PROTEIN 7.3 gm/dL (6.0-8.0)
[2024-03-27 12:52] LABS: ALKALINE PHOSPHATASE 69 U/L (46-116); BUN 14 mg/dl (9-23); CHLORIDE 102 mmol/L (98-107); SGPT/ALT 30 U/L (5-49); TOTAL PROTEIN 7.3 gm/dL (6.0-8.0)
== END | disposition home or self-care (01) ==
LOC: LAB 11:08
PROVIDERS: Nurse Practitioner Family; ATTEND Urology
DX: R53.83 Other fatigue (principal); D40.0 Neoplasm of uncertain behavior of prostate; K72.90 Hepatic failure, unspecified without coma; R53.82 Chronic fatigue, unspecified; I10 Essential (primary) hypertension

== ENCOUNTER 2024-04-01 14:28 | Inpatient (IN) | payer MEDICARE ==
[~2024-04-01] VITALS: Ht 178 cm; Wt 115.3 kg
[~2024-04-01 14:28] MED LIST changes: -ALDACTONE50 M1 PO; -FUROSEMIDE40 MG PO; -POTASSIUM CHLO10 MEQ PO; -TRELEGY ELLIPT1 EACH INH; -VALSARTAN40 MG PO; -XIFAXAN550 MG PO
[2024-04-01 14:37] VITALS: BP 110/56
[2024-04-01 15:01] LABS: BASO # 0.1 10*3/uL (0.0-0.1); BASO % 0.6 % (0.0-1.0); EOS # 0.7 10*3/uL (0.0-0.4); EOS % 5.9 % (1.0-4.0); HEMATOCRIT 47.9 % (42.0-52.0); MEAN CELL VOLUME 90.9 fl (80.0-94.0); MEAN CORPUSCULAR HGB 29.6 pg (27.0-31.0); MEAN CORPUSCULAR HGB CONC 32.6 g/dl (33.0-37.0); MEAN PLATELET VOLUME 11.1 fl (9.6-12.3); MONO # 0.9 10*3/uL (0.1-1.0); MONO % 7.9 % (3.0-9.0); NEUT # 5.4 10*3/uL (2.3-7.9); NEUT % 46.4 % (47.0-73.0); PLATELET COUNT AUTOMATED 183 10*3/uL (130-400); RED BLOOD COUNT 5.27 10*6/uL (4.50-5.90); RED CELL DISTRI WIDTH 13.7 % (0-14.5); WHITE BLOOD COUNT 11.7 10*3/uL (4.8-10.8)
[2024-04-01] MEDS ORDERED: VALSARTAN40 MG PO (15:15)
[2024-04-01] MEDS ORDERED: XIFAXAN550 MG PO (15:16)
[2024-04-01] MEDS ORDERED: FUROSEMIDE40 MG PO (15:16)
[2024-04-01] MEDS ORDERED: ALDACTONE50 M1 PO (15:17)
[2024-04-01] MEDS ORDERED: POTASSIUM CHLO10 MEQ PO (15:18)
[2024-04-01] MEDS ORDERED: TRELEGY ELLIPT1 EACH INH (15:19)
[2024-04-01 15:37] LABS: BUN 15 mg/dl (9-23); CHLORIDE 100 mmol/L (98-107); POTASSIUM 3.8 mmol/L (3.4-5.1)
[2024-04-01] MEDS ORDERED: SODIUM CHLORIDE 0.9% 1,000 ML IV ONE ×2 (16:05→17:35)
[2024-04-01 16:13] VITALS: BP 112/53
[2024-04-01] MEDS ORDERED: Magnesium Hydroxide 30 ML UDC PO PRN (17:05)
[2024-04-01] MEDS ORDERED: TEMAZEPAM 15 MG CAP PO PRN (17:05)
[2024-04-01] MEDS ORDERED: BISACODYL 5 MG TAB PO PRN (17:05)
[2024-04-01] MEDS ORDERED: BISACODYL 10 MG SUPP R PRN (17:05)
[2024-04-01] MEDS ORDERED: MAGNESIUM OXIDE 400 MG TAB PO ONE (17:30)
[2024-04-01 18:06] LABS: ALKALINE PHOSPHATASE 73 U/L (46-116); BUN 16 mg/dl (9-23); CHLORIDE 100 mmol/L (98-107); POTASSIUM 3.8 mmol/L (3.4-5.1); SGPT/ALT 26 U/L (5-49)
[2024-04-01] MEDS ORDERED: MAGNESIUM SULFATE 50 ML IV ONE ×2 (18:25→20:05)
[2024-04-01] MEDS ORDERED: DEXTROSE 10 % IN WATER 250 ML IV PRN (18:30)
[2024-04-01 20:59] VITALS: BP 133/66
[2024-04-01] MEDS ORDERED: LORazepam 2 MG/ML VIAL IV SCH (22:00)
[2024-04-01] MEDS ORDERED: INSULIN LISPRO 1 UNIT/0.01 ML SQ SCH (22:00)
[2024-04-02 00:07] VITALS: BP 138/69
[2024-04-02 01:52] VITALS: BP 138/67
[2024-04-02] MEDS ORDERED: LORazepam 2 MG/ML VIAL IV PRN (05:20)
[2024-04-02] MEDS ORDERED: Pantoprazole Sodium 40 MG TAB PO SCH (06:00)
[2024-04-02 06:45] LABS: ALKALINE PHOSPHATASE 63 U/L (46-116); BUN 15 mg/dl (9-23); CHLORIDE 101 mmol/L (98-107); CHOLESTEROL 99 mg/dL (<200); FREE T4 1.03 ng/dl (0.89-1.76); LDL CHOLESTEROL 40 mg/dL (9-159); POTASSIUM 3.9 mmol/L (3.4-5.1); SGPT/ALT 28 U/L (5-49); TRIGLYCERIDES 178 mg/dl (<150)
[2024-04-02 06:56] LABS: BASO # 0.1 10*3/uL (0.0-0.1); BASO % 0.6 % (0.0-1.0); EOS # 0.7 10*3/uL (0.0-0.4); EOS % 6.3 % (1.0-4.0); HEMATOCRIT 47.7 % (42.0-52.0); MEAN CELL VOLUME 90.5 fl (80.0-94.0); MEAN CORPUSCULAR HGB 30.2 pg (27.0-31.0); MEAN CORPUSCULAR HGB CONC 33.3 g/dl (33.0-37.0); MEAN PLATELET VOLUME 11.2 fl (9.6-12.3); MONO # 0.8 10*3/uL (0.1-1.0); MONO % 7.6 % (3.0-9.0); PLATELET COUNT AUTOMATED 185 10*3/uL (130-400); RED BLOOD COUNT 5.27 10*6/uL (4.50-5.90); RED CELL DISTRI WIDTH 13.8 % (0-14.5); WHITE BLOOD COUNT 10.3 10*3/uL (4.8-10.8)
[2024-04-02 08:00] VITALS: BP 158/76
[2024-04-02] MEDS ORDERED: GADOTERATE MEGLUMINE 5 MMOL/10 ML VIAL IV ONE (08:48)
[2024-04-02] MEDS ORDERED: GADOTERATE MEGLUMINE 7.5 MMOL/15 ML VIAL IV ONE (08:48)
[2024-04-02 12:00] VITALS: BP 115/77
[2024-04-02] MEDS ORDERED: LEVETIRACETAM IN NACL (ISO-OS) 100 ML IV SCH (18:00)
[2024-04-02 20:00] VITALS: BP 152/67
[2024-04-03] VITALS: BP 157/70
[2024-04-03 06:13] LABS: BASO % 0.4 % (0.0-1.0); EOS # 0.5 10*3/uL (0.0-0.4); EOS % 5.9 % (1.0-4.0); HEMATOCRIT 47.8 % (42.0-52.0); MEAN CELL VOLUME 91.2 fl (80.0-94.0); MEAN CORPUSCULAR HGB 29.4 pg (27.0-31.0); MEAN CORPUSCULAR HGB CONC 32.2 g/dl (33.0-37.0); MEAN PLATELET VOLUME 11.4 fl (9.6-12.3); MONO # 0.7 10*3/uL (0.1-1.0); MONO % 8.2 % (3.0-9.0); NEUT # 4.8 10*3/uL (2.3-7.9); NEUT % 52.9 % (47.0-73.0); PLATELET COUNT AUTOMATED 184 10*3/uL (130-400); RED BLOOD COUNT 5.24 10*6/uL (4.50-5.90); RED CELL DISTRI WIDTH 13.6 % (0-14.5)
[2024-04-03 06:35] LABS: BUN 11 mg/dl (9-23); CHLORIDE 103 mmol/L (98-107); POTASSIUM 4.3 mmol/L (3.4-5.1)
[2024-04-03 08:00] VITALS: BP 114/66
[2024-04-03 12:00] VITALS: BP 137/65
[2024-04-03] MEDS ORDERED: KEPPRA500 MG PO (12:59)
== END 2024-04-03 14:39 | disposition home health service (06) | DRG 73 ==
LOC: ED 14:28 → EDHOLD 16:27 → 4E 16:27
PROVIDERS: Emergency Medicine; Student in an Organized Health Care Education/Training Program; ADMIT Student in an Organized Health Care Education/Training Program; ATTEND Student in an Organized Health Care Education/Training Program
DX: G90.9 Disorder of the autonomic nervous system, unspecified (principal); G93.41 Metabolic encephalopathy; G91.2 (Idiopathic) normal pressure hydrocephalus; E87.20 Acidosis, unspecified; H55.09 Other forms of nystagmus; R56.9 Unspecified convulsions; M25.512 Pain in left shoulder; G89.29 Other chronic pain; E83.42 Hypomagnesemia; F03.90 Unspecified dementia, unspecified severity, without behavioral disturbance, psychotic disturbance, mood disturbance, and anxiety; I10 Essential (primary) hypertension; E78.5 Hyperlipidemia, unspecified; E11.9 Type 2 diabetes mellitus without complications; I25.10 Atherosclerotic heart disease of native coronary artery without angina pectoris; N40.0 Benign prostatic hyperplasia without lower urinary tract symptoms; F32.A Depression, unspecified; F17.210 Nicotine dependence, cigarettes, uncomplicated; K74.60 Unspecified cirrhosis of liver; K63.8219 Small intestinal bacterial overgrowth, unspecified; Z80.8 Family history of malignant neoplasm of other organs or systems; Z82.3 Family history of stroke; Z88.8 Allergy status to other drugs, medicaments and biological substances; Z79.4 Long term (current) use of insulin; Z79.899 Other long term (current) drug therapy; Z85.46 Personal history of malignant neoplasm of prostate; Z95.5 Presence of coronary angioplasty implant and graft

== ENCOUNTER → 2024-04-26 | Outpatient (CLI) | payer MEDICARE ==
[~2024-04-26] MED LIST changes: +ALDACTONE50 M1 PO; +FUROSEMIDE40 MG PO; +KEPPRA500 MG PO; +POTASSIUM CHLO10 MEQ PO; +TRELEGY ELLIPT1 EACH INH; +VALSARTAN40 MG PO; +XIFAXAN550 MG PO
== END | disposition home or self-care (01) ==
LOC: RESCLI 14:35
PROVIDERS: ATTEND Internal Medicine
DX: E11.42 Type 2 diabetes mellitus with diabetic polyneuropathy (principal); E11.8 Type 2 diabetes mellitus with unspecified complications; E78.2 Mixed hyperlipidemia; R41.3 Other amnesia; F02.A11 Dementia in other diseases classified elsewhere, mild, with agitation; G40.909 Epilepsy, unspecified, not intractable, without status epilepticus; Z79.899 Other long term (current) drug therapy; Z88.8 Allergy status to other drugs, medicaments and biological substances; Z88.5 Allergy status to narcotic agent

== ENCOUNTER → 2024-07-27 | Outpatient (CLI) | payer MEDICARE ==
[~2024-07-27] MED LIST changes: +AMOX-CLAV 875-1 EACH PO; +ASPIRIN CHEWABL81 MG PO; +CLARITIN10 MG PO; +DECADRON4 MG PO; +LACTULOSE10 GM PO; +LASIX40 MG PO; +LOPRESSOR25 MG PO; +LYRICA75 M1 PO; +METFORMIN HYDR500 MG PO; +NAMENDA-5 PO; +NATURE'S BLEND100 M2 PO; +PROSCAR5 M1 PO; +PROTONIX40 MG PO; +SILVADENE,SSD C50 GM T; +TESTOSTERO200 MG/11 IM; +TOPAMAX50 MG PO; +VITAMIN B12500 MC2 PO; +VITAMIN D350 MC2 PO
[2024-07-27 12:02] LABS: BASO # 0.1 10*3/uL (0.0-0.1); BASO % 0.5 % (0.0-1.0); EOS # 0.5 10*3/uL (0.0-0.4); EOS % 5.4 % (1.0-4.0); HEMATOCRIT 43.1 % (42.0-52.0); MEAN CELL VOLUME 92.5 fl (80.0-94.0); MEAN CORPUSCULAR HGB 30.7 pg (27.0-31.0); MEAN CORPUSCULAR HGB CONC 33.2 g/dl (33.0-37.0); MEAN PLATELET VOLUME 10.6 fl (9.6-12.3); MONO # 0.8 10*3/uL (0.1-1.0); MONO % 8.4 % (3.0-9.0); NEUT # 3.6 10*3/uL (2.3-7.9); PLATELET COUNT AUTOMATED 183 10*3/uL (130-400); RED BLOOD COUNT 4.66 10*6/uL (4.50-5.90); RED CELL DISTRI WIDTH 13.5 % (0-14.5); WHITE BLOOD COUNT 9.6 10*3/uL (4.8-10.8)
[2024-07-27 12:40] LABS: TOTAL PROTEIN 7.3 gm/dL (6.0-8.0)
[2024-07-27 12:41] LABS: ALKALINE PHOSPHATASE 64 U/L (46-116); BUN 15 mg/dl (9-23); CHLORIDE 103 mmol/L (98-107); POTASSIUM 3.7 mmol/L (3.4-5.1); SGPT/ALT 33 U/L (5-49); TOTAL PROTEIN 7.3 gm/dL (6.0-8.0)
== END | disposition home or self-care (01) ==
LOC: LAB 11:31
PROVIDERS: Nurse Practitioner; ATTEND Nurse Practitioner Family
DX: Z12.5 Encounter for screening for malignant neoplasm of prostate (principal); D40.0 Neoplasm of uncertain behavior of prostate; K74.60 Unspecified cirrhosis of liver; R53.83 Other fatigue; Z79.899 Other long term (current) drug therapy

== ENCOUNTER → 2024-10-22 | Outpatient (CLI) | payer MEDICARE ==
[2024-10-22 11:56] LABS: BUN 12 mg/dl (9-23); LDL CHOLESTEROL 26 mg/dL (9-159); SGPT/ALT 43 U/L (5-49)
== END | disposition home or self-care (01) ==
LOC: LAB 10:35
PROVIDERS: Student in an Organized Health Care Education/Training Program; ATTEND Internal Medicine Endocrinology, Diabetes & Metabolism
DX: E11.42 Type 2 diabetes mellitus with diabetic polyneuropathy (principal)

== ENCOUNTER → 2024-11-05 | Outpatient (CLI) | payer MEDICARE ==
[2024-11-05 11:02] LABS: BILIRUBIN Negative (Negative); BLOOD Negative (Negative); CLARITY Clear (Clear); COLOR Yellow (Yellow); KETONE Negative (Negative); LEUKO ESTERASE Negative (Negative); NITRITE Negative (Negative); PH 6.0 (4.5-8.0); SPECIFIC GRAVITY 1.015 (1.001-1.030); UROBILINOGEN 1.0 E.U./dl (0.0-1.0)
[2024-11-05 11:09] LABS: RBC 0-2 rbc/hpf (0-2)
[2024-11-05 11:10] LABS: BACTERIA TRACE; WBC 0-2 wbc/hpf (0-5)
[2024-11-05 11:25] LABS: BUN 9 mg/dl (9-23); SGPT/ALT 49 U/L (5-49)
== END | disposition home or self-care (01) ==
LOC: LAB 10:27
PROVIDERS: Nurse Practitioner; ATTEND Nurse Practitioner Family
DX: K76.0 Fatty (change of) liver, not elsewhere classified (principal); R53.83 Other fatigue; D40.0 Neoplasm of uncertain behavior of prostate; R39.9 Unspecified symptoms and signs involving the genitourinary system; Z12.5 Encounter for screening for malignant neoplasm of prostate

== ENCOUNTER → 2024-11-08 | Outpatient (CLI) | payer MEDICARE | END | disposition home or self-care (01) | LOC: CT 00:23 | PROVIDERS: ATTEND Urology | DX: K76.0 Fatty (change of) liver, not elsewhere classified (principal); K59.00 Constipation, unspecified; N43.3 Hydrocele, unspecified; N50.819 Testicular pain, unspecified; R10.9 Unspecified abdominal pain ==

== ENCOUNTER 2025-01-16 13:30 | Emergency (ER) | payer MEDICARE ==
[~2025-01-16] VITALS: Ht 177.8 cm; Wt 109.3 kg
[2025-01-16 14:10] VITALS: BP 92/53
[2025-01-16] MEDS ORDERED: METHOCARBAMOL 750 MG TAB PO ONE (14:40)
[2025-01-16] MEDS ORDERED: EC NAPROSYN,NA500 MG PO (16:16)
[2025-01-16] MEDS ORDERED: TRAMADOL HCL50 MG PO (16:16)
== END 2025-01-16 16:22 | disposition home or self-care (01) ==
LOC: ED 13:30
DX: M15.9 Polyosteoarthritis, unspecified (principal); M25.512 Pain in left shoulder; M25.562 Pain in left knee; F17.200 Nicotine dependence, unspecified, uncomplicated; Z88.6 Allergy status to analgesic agent; Z88.5 Allergy status to narcotic agent; Z79.82 Long term (current) use of aspirin; Z79.899 Other long term (current) drug therapy; Z79.4 Long term (current) use of insulin; Z98.890 Other specified postprocedural states; Z95.5 Presence of coronary angioplasty implant and graft

== ENCOUNTER → 2025-02-20 | Outpatient (CLI) | payer MEDICARE ==
[~2025-02-20] MED LIST changes: +EC NAPROSYN,NA500 MG PO
[2025-02-20 10:16] LABS: LDL CHOLESTEROL 53 mg/dL (9-159)
== END | disposition home or self-care (01) ==
LOC: LAB 09:09
PROVIDERS: ATTEND Physician Assistant Medical
DX: I25.10 Atherosclerotic heart disease of native coronary artery without angina pectoris (principal); R07.9 Chest pain, unspecified; R06.02 Shortness of breath

== ENCOUNTER 2025-02-27 14:27 | Emergency (ER) | payer MEDICARE ==
[~2025-02-27] VITALS: Wt 110.9 kg
[~2025-02-27 14:27] MED LIST changes: +LANTUS SOL100 UNIT/1 SQ
[2025-02-27 14:30] VITALS: BP 100/64
[2025-02-27 15:04] LABS: BASO # 0.0 10*3/uL (0.0-0.1); BASO % 0.3 % (0.0-1.0); EOS # 0.2 10*3/uL (0.0-0.4); EOS % 2.0 % (1.0-4.0); MEAN CELL VOLUME 90.4 fl (80.0-94.0); MEAN CORPUSCULAR HGB 29.5 pg (27.0-31.0); MEAN PLATELET VOLUME 9.6 fl (9.6-12.3); MONO # 0.6 10*3/uL (0.1-1.0); MONO % 6.0 % (3.0-9.0); NEUT # 5.6 10*3/uL (2.3-7.9); NEUT % 51.9 % (47.0-73.0); NUCLEATED RED BLOOD CELL 0.0 % (0.0-0.0); NUCLEATED RED BLOOD CELL 0.0 10*3/uL (0.0-0.0); PLATELET COUNT AUTOMATED 225 10*3/uL (130-400); RED CELL DISTRI WIDTH 13.0 % (0-14.5)
[2025-02-27 15:26] LABS: BUN 12 mg/dl (9-23)
[2025-02-27] MEDS ORDERED: DULOXETINE HCL60 MG PO (15:30)
[2025-02-27] MEDS ORDERED: TAMSULOSIN HCL0.4 MG PO (15:32)
[2025-02-27] MEDS ORDERED: MEMANTINE HCL10 MG PO (15:34)
== END 2025-02-27 17:18 | disposition home or self-care (01) ==
LOC: ED 14:27
PROVIDERS: Nurse Practitioner Family
DX: S13.4XXA Sprain of ligaments of cervical spine, initial encounter (principal); S33.5XXA Sprain of ligaments of lumbar spine, initial encounter; S80.02XA Contusion of left knee, initial encounter; S09.90XA Unspecified injury of head, initial encounter; Z98.890 Other specified postprocedural states; Z88.5 Allergy status to narcotic agent; J44.9 Chronic obstructive pulmonary disease, unspecified; K21.9 Gastro-esophageal reflux disease without esophagitis; E11.9 Type 2 diabetes mellitus without complications; F32.A Depression, unspecified; G47.00 Insomnia, unspecified